=== PATIENT | female | born 1995 | race Caucasian/White ===

== ENCOUNTER → 2020-03-27 13:36 | Outpatient (BNVA) | payer MEDICARE, MEDICAID, SELFPAY | PROVIDERS: Family Provider Nurse Practitioner; Visit Provider Psychiatry & Neurology Psychiatry | DX: F60.3 Borderline personality disorder (principal); F43.12 Post-traumatic stress disorder, chronic; F33.2 Major depressive disorder, recurrent severe without psychotic features; F41.1 Generalized anxiety disorder; F12.20 Cannabis dependence, uncomplicated; F17.200 Nicotine dependence, unspecified, uncomplicated | CPT/HCPCS: 99204 ==

== ENCOUNTER → 2020-05-08 12:40 | Outpatient (BNVA) | payer MEDICARE, MEDICAID, SELFPAY | PROVIDERS: Family Provider Nurse Practitioner; Visit Provider Psychiatry & Neurology Psychiatry | DX: F60.3 Borderline personality disorder (principal); F41.1 Generalized anxiety disorder; F33.2 Major depressive disorder, recurrent severe without psychotic features; F17.200 Nicotine dependence, unspecified, uncomplicated; F43.12 Post-traumatic stress disorder, chronic; F12.20 Cannabis dependence, uncomplicated | CPT/HCPCS: 80053; 84146; 84443; 84702; 85025; 99214 ==

== ENCOUNTER 2020-05-19 20:37 | Emergency (ER) | payer MEDICARE, MEDICAID, SELFPAY ==
[2020-05-19 21:28] VITALS: BP 102/63; PULSE 102; RESP 16; TEMP 38.1; O2SAT 97; BMI 19.5
--- NOTE | 2020-05-19 22:12 | XR_ITS ---
WS: [id number] XR chest 1V portable [id number] REASON FOR EXAM: cough, fever FINDINGS: The chest is unchanged compared to 05/18/2017. The heart and mediastinum are within normal limits. Calcified granulomatous changes in both hemithoraces. The bony thorax is intact. XR/XR chest 1V portable [id number] IMPRESSION: No acute chest abnormality identified.
--- NOTE | 2020-05-19 22:14 | ED_ITS ---
HPI - COVID General: Chief Complaint: COVID symptoms Stated Complaint: FEVER,COUGH,SOB,LOST TASTE,CHILLS Time Seen by Provider: 05/19/20 22:12 Triage information: Has fever, cough or shortness of breath . No known COVID + exposure last 14 days History of Present Illness: HPI Narrative: Patient is a 24-year-old female comes to the ED with upper respiratory symptoms. Patient says symptoms started approximately 5 days ago. She complains of having fever, cough, shortness of breath, loss of taste/smell, chills, nausea and vomiting. Cough is mostly dry but it has been productive yesterday and she had dark green phlegm. She does have increased urine frequency, but denies dysuria or hematuria. Denies any known Covid contacts. COVID 19 common symptoms: positive fever(s), chills, non-productive cough, dyspnea, body aches, loss of sense of smell and/or taste, nasal congestion, nausea and vomiting; negative productive cough, fatigue, headache(s), throat pain or diarrhea COVID 19 other sytmptoms: negative chest pain COVID Results: Nasal/Oral Coronavirus 2019 PCR Pending 05/19/20 22:40 05/19/20 Review of Systems Const: Reports: fever(s), chills and body aches; Denies: fatigue Eyes: Denies: change in vision or eye discomfort ENMT: Reports: nasal discharge and nasal congestion; Denies: throat pain or odynophagia Card: Denies: chest pain, palpitations, edema, swelling of feet/ankles, dyspnea on exertion or orthopnea Resp: Reports: dyspnea and non-productive cough; Denies: productive cough GI: Reports: nausea and vomiting; Denies: abdominal pain, diarrhea, constipation or hematochezia : Reports: urinary frequency; Denies: flank pain, dysuria or hematuria Musc: Denies: neck pain, back pain or extremity swelling Skin/Breast: Denies: rash or new lesions Neuro: Denies: headache(s), numbness in extremities or weakness in extremities PFS ED PFSH: Social History Smoking and tobacco status: current every day smoker e-cigarettes E-Cigarette Details: vaporizer device and with nicotine Quit status (tobacco): has tried quititng Number of times tried to quit tobacco: 2 Second hand smoke exposure: No Current gender identity: Female Physical Exam Const: COMMON NORMALS: no acute distress, patient oriented x3, healthy appearing and alert GENERAL APPEARANCE: cooperative and comfortable HENMT: COMMON NORMALS: normocephalic HEAD & SCALP: normocephalic MOUTH: Normal oral and palatal mucosa present THROAT: posterior oropharynx normal and uvula midline Eye: COMMON NORMALS: Equal, round and reactive pupils present PUPIL: Yes Equal, round and reactive pupils present Neck/C-Spine: COMMON NORMALS: supple GENERAL: Yes normal visual inspection Resp: COMMON NORMALS: normal respiratory effort, No retractions, No use of accessory muscles and clear to auscultation bilaterally EFFORT & INSPECTION: Yes able to speak in complete sentences, No tachypneic, No respiratory distress and No labored AUSCULTATION: clear to auscultation bilaterally Cardio: COMMON NORMALS: regular rate, regular rhythm, S1 normal heart sound present, S2 normal heart sound present, No gallops present (Cardio), No clicks present (Cardio), No murmurs present (Cardio) and Peripheral pulses 2+ throughout RATE: regular rate RHYTHM: regular rhythm HEART SOUNDS: S1 normal heart sound present and S2 normal heart sound present PERIPHERAL PULSES: Peripheral pulses 2+ throughout GI: COMMON NORMALS: Normal to inspection, nondistended, normoactive bowel sounds present, Soft to palpation, non-tender and no masses PALPATION: Yes Soft to palpation : BLADDER/KIDNEY EXAM: Yes CVA tenderness on the right Back/Pelvis: GENERAL BACK: Yes CVA tenderness CVA tenderness: right Extremity: COMMON NORMALS: normal to inspection and no pedal edema Neuro: COMMON NORMALS: patient oriented x3 and moves all extremities SENSORIUM/ORIENTATION: Yes alert Skin: GENERAL SKIN EXAM: dry skin Course Vital Signs: Vital signs: Vital Signs Temperature 100.5 F H 05/19/20 21:28 Pulse Rate 89 05/19/20 23:58 Respiratory Rate 16 05/19/20 23:58 Blood Pressure 98/59 05/19/20 23:58 Pulse Oximetry 96 05/19/20 23:58 MDM - COVID MDM Narrative: Medical decision making narrative: Patient is a 24-year-old female comes to the ED with upper respiratory infection symptoms. Upper respiratory symptoms started approximately 5 days ago. She is also complaining of some urine frequency. Patient has elevated temp of 100.5 but rest of vitals are stable. Lungs are clear to auscultation bilaterally and patient has some right CVA tenderness. All other exam findings normal. White blood cell count 10.4 and hemoglobin 10.4. Sodium 132 and potassium 3.3. Rest of CBC and CMP were unremarkable. Influenza negative and strep negative. COVID-19 send out test is pending. UA showed signs of UTI. Chest x-ray shows no acute infiltra keyanna or findings. While here in the ED patient received a liter of IV fluids, Tylenol, Solu-Medrol, oral potassium and cefdinir. Patient diagnosed with upper respiratory infection and a UTI. She was sent home with a prescription of Zofran, albuterol for nebulizer and cefdinir. Patient was given self quarantine instructions. Return to ED precautions given. Follow-up with PCP in 7 to 10 days for reevaluation. Patient understood and agreed with plan. Lab Data: Attestation: I reviewed the patient's lab results. Labs: Lab Results 05/19/20 05/19/20 05/19/20 Range/Units 22:30 22:30 22:30 WBC 10.4 H (4.0-10.0) 10^3/ uL RBC 3.73 L (4.1-5.3) 10^6/u L Hgb 10.4 L (11.5-15.3) g/dL Hct 31.2 L (37.0-47.0) % MCV 83.6 (81-99) fL MCH 27.9 L (28.0-34.0) pg MCHC 33.3 (30.0-36.0) g/dL RDW 14.1 (12.1-15.1) % Plt Count 205 (130-400) 10^3/c mm MPV 10.5 H (7.4-10.4) fL Neut % (Auto) 70.3 % Lymph % (Auto) 18.8 % [place] % (Auto) 9.8 % Eos % (Auto) 0.2 % Baso % (Auto) 0.3 % Neut # (Auto) 7.29 (1.8-7.7) 10^3/u L Lymph # (Auto) 2.0 (0.8-4.8) 10^3/u L [place] # (Auto) 1.0 H (0.2-0.9) 10^3/u L Eos # (Auto) 0.0 (0.0-0.8) 10^3/u L Baso # (Auto) 0.0 (0.0-0.1) 10^3/u L Nucleated RBC % (a uto) 0 % Nucleated RBCs # 0.0 /100WBC Sodium 132 L (136-145) mmol/L Potassium 3.3 L (3.5-5.1) mmol/L Chloride 97 L (98-107) mmol/L Carbon Dioxide 22 (22-29) mmol/L Anion Gap 16.3 (5-19) BUN 10 (6-20) mg/dL Creatinine 0.8 (0.5-0.9) mg/dL GFR Calculation 88.1 L (90-130) mL/min Glucose 95 (65-115) mg/dL Calculated Osmolal ity 273 L (285-295) mOsm/k g Calcium 8.5 (8.5-10.5) mg/dL Total Bilirubin 0.8 (0.15-1.2) mg/dL AST 11 (0-32) U/L ALT 16 (0-33) U/L Alkaline Phosphata se 120 H (35-105) IU/L Total Protein 7.0 (6.6-8.7) g/dL Albumin 3.4 L (3.5-5.2) g/dL Globulin 3.6 (1.3-4.6) g/dL HCG, Qual Negative (Negative) Urine Color (Yellow) Urine Appearance (CLEAR) Urine pH (5-7) Ur Specific Gravit y (1.005-1.030) Urine Protein (Negative) Urine Glucose (UA) (Normal) Urine Ketones (Negative) Urine Blood (Negative) Urine Nitrate (Negative) Urine Bilirubin (Negative) Urine Urobilinogen (Negative) mg/dL Ur Leukocyte Clare ase (Negative) Urine RBC (0-2) /hpf Urine WBC (0-5) /hpf Ur Squamous Epith Cells (0-5) /hpf Amorphous Sediment Urine Bacteria (NONE) /hpf Influenza Type A A g (Negative) Influenza Type B A g (Negative) Group A Strep Rapi d (Negative) 05/19/20 05/19/20 05/19/20 Range/Units 22:40 22:41 22:43 WBC (4.0-10.0) 10^3/ uL RBC (4.1-5.3) 10^6/u L Hgb (11.5-15.3) g/dL Hct (37.0-47.0) % MCV (81-99) fL MCH (28.0-34.0) pg MCHC (30.0-36.0) g/dL RDW (12.1-15.1) % Plt Count (130-400) 10^3/c mm MPV (7.4-10.4) fL Neut % (Auto) % Lymph % (Auto) % [place] % (Auto) % Eos % (Auto) % Baso % (Auto) % Neut # (Auto) (1.8-7.7) 10^3/u L Lymph # (Auto) (0.8-4.8) 10^3/u L [place] # (Auto) (0.2-0.9) 10^3/u L Eos # (Auto) (0.0-0.8) 10^3/u L Baso # (Auto) (0.0-0.1) 10^3/u L Nucleated RBC % (a uto) % Nucleated RBCs # /100WBC Sodium (136-145) mmol/L Potassium (3.5-5.1) mmol/L Chloride (98-107) mmol/L Carbon Dioxide (22-29) mmol/L Anion Gap (5-19) BUN (6-20) mg/dL Creatinine (0.5-0.9) mg/dL GFR Calculation (90-130) mL/min Glucose (65-115) mg/dL Calculated Osmolal ity (285-295) mOsm/k g Calcium (8.5-10.5) mg/dL Total Bilirubin (0.15-1.2) mg/dL AST (0-32) U/L ALT (0-33) U/L Alkaline Phosphata se (35-105) IU/L Total Protein (6.6-8.7) g/dL Albumin (3.5-5.2) g/dL Globulin (1.3-4.6) g/dL HCG, Qual (Negative) Urine Color Yellow (Yellow) Urine Appearance Cloudy (CLEAR) Urine pH 6.5 (5-7) Ur Specific Gravit y 1.005 (1.005-1.030) Urine Protein Trace (Negative) Urine Glucose (UA) Norm (Normal) Urine Ketones 1+ H (Negative) Urine Blood 3+ H (Negative) Urine Nitrate Negative (Negative) Urine Bilirubin 1+ H (Negative) Urine Urobilinogen Norm (Negative) mg/dL Ur Leukocyte Clare ase 2+ H (Negative) Urine RBC 5-10 H (0-2) /hpf Urine WBC 15-25 H (0-5) /hpf Ur Squamous Epith Cells 5-10 H (0-5) /hpf Amorphous Sediment Not Reportable Urine Bacteria 3+ H (NONE) /hpf Influenza Type A A g Negative (Negative) Influenza Type B A g Negative (Negative) Group A Strep Rapi d Negative (Negative) Imaging Data: CXR: Attestation: I personally reviewed and interpreted this imaging study as follows: My impression: Chest x-ray showed no acute infiltrates or findings. COVID Results: Nasal/Oral Coronavirus 2019 PCR Pending 05/19/20 22:40 05/19/20 Discharge Plan Discharge Patient Disposition: Home Clinical Impression: Upper respiratory infection Qualifiers: URI type: unspecified viral URI Qualified Code(s): J06.9 - Acute upper respiratory infection, unspecified UTI (urinary tract infection) Qualifiers: Urinary tract infection type: acute cystitis Hematuria presence: with hematuria Qualified Code(s): N30.01 - Acute cystitis with hematuria Condition: Stable Prescriptions: New cefdinir 300 mg capsule 300 mg PO BID 10 Days Qty: 20 RF: 0 Zofran 4 mg tablet 4 mg PO Q8H Qty: 12 RF: 0 albuterol sulfate 1.25 mg/3 mL solution for nebulization 1.25 mg inhalation QID PRN (Reason: shortness of breath or wheezing) Qty: 75 RF: 0 No Action prazosin 2 mg capsule 2 mg PO .HS Qty: 30 RF: 1 lamotrigine [Lamictal] 25 mg tablet 25 mg PO DAILY Qty: 150 RF: 0 hydroxyzine HCl 50 mg tablet 50 mg PO QID PRN (Reason: itching/anxiety) Qty: 120 RF: 1 Discharge Orders: Discharge ED (Routine); Ordered 05/19/20 Ordered By: Bashir Langley Referrals: Lesvia Love FNP [Primary Care Provider] - Discharge Diet: Advance as tolerated Discharge Activity: Increase activity as tolerated and Limit activity as instructed Patient Instructions: Urinary Tract Infection in Women (ED), Upper Respiratory Infection (ED) Activity Restrictions/Additional Instructions: Follow-up with medical provider as directed in 7-10 days. COVID testing was performed and sent to lab and results will be back in 1 to 2 days. [facility] should contact you to let you know Covid results, but you can also contact [facility] to find out results as well. Self quarantine until you get Covid results. If positive self quarantine for the next 7-10 days. Take ibuprofen or Tylenol for fevers. Drink plenty of fluids and stay hydrated. Symptom management with [id number] cough and nasal decongestant meds. Take full course of antibiotics as prescribed to treat UTI. Return to the ER or your medical provider if condition worsens. Please read and understand discharge instructions. If any questions, please ask Coding Level of Care Code ED [employer] for Chg Fwd Exam Comprehensive
[2020-05-19] MEDS: ondansetron 2 mg/ML SDV 2 mL 4 MG IVP (22:28)
[2020-05-19] MEDS: sodium chloride 0.9% 1,000 ML 999 ML IV (22:28)
[2020-05-19 22:48] VITALS: O2SAT 99
[2020-05-19 22:56] LABS: Basophils % 0.3 %; Eosinophils % 0.2 %; Hematocrit 31.2 % (37.0-47.0); Hemoglobin 10.4 g/dL (11.5-15.3); Lymphocytes % 18.8 %; Mean Corpuscular HGB Conc 33.3 g/dL (30.0-36.0); Mean Corpuscular Hemoglobin 27.9 pg (28.0-34.0); Mean Corpuscular Volume 83.6 fL (81-99); Mean Platelet Volume 10.5 fL (7.4-10.4); Monocytes % 9.8 %; Neutrophils # 7.29 10^3/uL (1.8-7.7); Neutrophils % 70.3 %; Nucleated Red Blood Cells % 0 %; Platelet Count 205 10^3/cmm (130-400); Red Blood Count 3.73 10^6/uL (4.1-5.3); Red Cell Distribution Width 14.1 % (12.1-15.1); White Blood Count 10.4 10^3/uL (4.0-10.0)
[2020-05-19 22:57] LABS: Rapid Strep A Test Negative (Negative)
[2020-05-19 23:00] LABS: Alanine Aminotransferase 16 U/L (0-33); Albumin Level 3.4 g/dL (3.5-5.2); Alkaline Phosphatase 120 IU/L (35-105); Anion Gap 16.3 (5-19); Aspartate Amino Transferase 11 U/L (0-32); Blood Urea Nitrogen 10 mg/dL (6-20); Calcium 8.5 mg/dL (8.5-10.5); Carbon Dioxide 22 mmol/L (22-29); Chloride 97 mmol/L (98-107); Globulin 3.6 g/dL (1.3-4.6); Glomerular Filtration Rate 88.1 mL/min (90-130); Glucose 95 mg/dL (65-115); Osmolality Calculated 273 mOsm/kg (285-295); Potassium 3.3 mmol/L (3.5-5.1); Sodium 132 mmol/L (136-145); Total Bilirubin 0.8 mg/dL (0.15-1.2)
[2020-05-19 23:06] LABS: HCG, Serum Qual Negative (Negative)
[2020-05-19] MEDS: acetaminophen 650 mg/20.3 mL UDC PO (23:07)
[2020-05-19 23:08] LABS: Influenza A by IFA Negative (Negative); Influenza B by IFA Negative (Negative)
[2020-05-19 23:18] LABS: Urine Appearance Cloudy (CLEAR); Urine Color Yellow (Yellow); pH Urine 6.5 (5-7)
[2020-05-19 23:19] LABS: Bilirubin Urine 1+ (Negative); Blood Urine 3+ (Negative); Glucose Urine UA Norm (Normal); Ketones Urine 1+ (Negative); Leukocyte Esterase Urine 2+ (Negative); Nitrate Urine Negative (Negative); Protein Urine Trace (Negative); Specific Gravity, Urine 1.005 (1.005-1.030); Urobilinogen Urine Norm (Negative)
[2020-05-19 23:20] LABS: Add Urine Culture? Yes; Bacteria Urine 3+ /hpf; WBC Urine 15-25 /hpf (0-5)
[2020-05-19] MEDS: potassium chloride ER 20 mEq Tablet PO (23:37)
[2020-05-19 23:38] VITALS: BP 108/62; PULSE 109; RESP 18; O2SAT 98
[2020-05-19] MEDS: cefdinir 300 MG CAPSULE PO (23:48)
[2020-05-19 23:58] VITALS: BP 98/59; PULSE 89; RESP 16; O2SAT 96
[2020-05-20 16:06] LABS: Coronavirus Test Green County Not Detected
--- NOTE | 2020-05-21 15:54 | PC.NURSE ---
Pt contacted regarding negative COVID results
== END 2020-05-19 23:56 | disposition home or self-care (01) ==
PROVIDERS: Emergency Provider Physician Assistant; PCP Registered Nurse
DX: J06.9 Acute upper respiratory infection, unspecified (principal); N30.01 Acute cystitis with hematuria; F17.290 Nicotine dependence, other tobacco product, uncomplicated
CPT/HCPCS: 71045; 80053; 81001; 84703; 85025; 87077; 87081; 87086; 87186; 87635; 87804; 87880; 96361; 96374; 96375; 99284; J2405; J2930; J7030

== ENCOUNTER → 2020-07-28 14:08 | Outpatient (BNVA) | payer MEDICARE, MEDICAID, SELFPAY | PROVIDERS: PCP Registered Nurse; Visit Provider Psychiatry & Neurology Psychiatry | DX: F60.3 Borderline personality disorder (principal); F41.1 Generalized anxiety disorder; F33.2 Major depressive disorder, recurrent severe without psychotic features; F17.200 Nicotine dependence, unspecified, uncomplicated; F12.20 Cannabis dependence, uncomplicated; F43.12 Post-traumatic stress disorder, chronic | CPT/HCPCS: 99214 ==

== ENCOUNTER → 2020-10-07 12:45 | Outpatient (BNVA) | payer MEDICARE, MEDICAID, SELFPAY | PROVIDERS: PCP Registered Nurse; Visit Provider Psychiatry & Neurology Psychiatry | DX: F60.3 Borderline personality disorder (principal); F41.1 Generalized anxiety disorder; F33.2 Major depressive disorder, recurrent severe without psychotic features; F17.200 Nicotine dependence, unspecified, uncomplicated; F12.20 Cannabis dependence, uncomplicated; F43.12 Post-traumatic stress disorder, chronic | CPT/HCPCS: 99214 ==

== ENCOUNTER → 2020-10-09 11:45 | Outpatient (BNVA) | payer MEDICARE, MEDICAID, SELFPAY | PROVIDERS: PCP Family Medicine; Visit Provider Family Medicine | DX: F60.3 Borderline personality disorder (principal); K90.9 Intestinal malabsorption, unspecified; Z98.84 Bariatric surgery status; R53.83 Other fatigue; L65.9 Nonscarring hair loss, unspecified; D64.9 Anemia, unspecified | CPT/HCPCS: 80053; 82306; 82607; 82728; 82746; 83550; 84443; 85025 ==

== ENCOUNTER → 2021-03-25 10:00 | Outpatient (BNVA) | payer MEDICARE, MEDICAID, SELFPAY | PROVIDERS: PCP Family Medicine; Visit Provider Psychiatry & Neurology Psychiatry | DX: F41.1 Generalized anxiety disorder (principal); F33.2 Major depressive disorder, recurrent severe without psychotic features; F43.12 Post-traumatic stress disorder, chronic; F60.3 Borderline personality disorder; F17.290 Nicotine dependence, other tobacco product, uncomplicated; F12.20 Cannabis dependence, uncomplicated | CPT/HCPCS: 99214 ==

== ENCOUNTER → 2021-05-13 09:45 | Outpatient (BNVA) | payer MEDICARE, MEDICAID, SELFPAY | PROVIDERS: PCP Family Medicine; Visit Provider Psychiatry & Neurology Psychiatry | DX: F41.1 Generalized anxiety disorder (principal); F17.290 Nicotine dependence, other tobacco product, uncomplicated; F12.20 Cannabis dependence, uncomplicated; F43.12 Post-traumatic stress disorder, chronic; F33.2 Major depressive disorder, recurrent severe without psychotic features | CPT/HCPCS: 99214 ==

== ENCOUNTER 2021-06-01 09:06 | Outpatient (CLI) | payer MEDICARE, MEDICAID, SELFPAY ==
--- NOTE | 2021-06-01 10:46 | US_ITS ---
WS: [id number] ULTRASOUND BREAST BILATERAL TECHNIQUE: Ultrasound bilateral breast focused area of concern. CLINICAL INFORMATION: ROBERTO BREAST PAIN/LUMPS;STRONG FAM HX OF BREAST CA COMPARISON: None. FINDINGS: Ultrasound bilateral breast RIGHT BREAST: Ultrasound 11-3 Dense underlying parenchymal tissue. No cystic or solid lesions. LEFT BREAST: Ultrasound 12-3 Dense underlying parenchymal tissue. Tiny cyst with some internal debris at the 12:00 position areola measuring 4.7 x 4.4 mm. No suspicious abnormalities LEFT breast. US/US breast BI limited* [id number] IMPRESSION: No suspicious abnormalities. No lesions to target for biopsy. RECOMMEND ANNUAL SCREENING MAMMOGRAPHY AGE 40
== END 2021-06-01 09:07 | disposition home or self-care (01) ==
LOC: RAD 09:10
PROVIDERS: PCP Family Medicine; Visit Provider Nurse Practitioner Family
DX: N63.10 Unspecified lump in the right breast, unspecified quadrant (principal); N63.20 Unspecified lump in the left breast, unspecified quadrant; Z80.3 Family history of malignant neoplasm of breast
CPT/HCPCS: 76642

== ENCOUNTER → 2021-06-24 10:19 | Outpatient (BNVA) | payer MEDICARE, MEDICAID, SELFPAY | PROVIDERS: PCP Family Medicine; Visit Provider Psychiatry & Neurology Psychiatry | DX: F41.1 Generalized anxiety disorder (principal); F17.290 Nicotine dependence, other tobacco product, uncomplicated; F12.20 Cannabis dependence, uncomplicated; F33.2 Major depressive disorder, recurrent severe without psychotic features; F43.12 Post-traumatic stress disorder, chronic; F60.3 Borderline personality disorder | CPT/HCPCS: 99214 ==

== ENCOUNTER → 2021-06-25 09:18 | Outpatient (BNVA) | payer MEDICARE, MEDICAID, SELFPAY | PROVIDERS: PCP Family Medicine; Visit Provider Social Worker | DX: F60.3 Borderline personality disorder (principal); F33.2 Major depressive disorder, recurrent severe without psychotic features; F41.1 Generalized anxiety disorder; F43.12 Post-traumatic stress disorder, chronic | CPT/HCPCS: 90834 ==

== ENCOUNTER → 2021-07-23 10:21 | Outpatient (BNVA) | payer MEDICARE, MEDICAID, SELFPAY | PROVIDERS: PCP Family Medicine; Visit Provider Social Worker | DX: F60.3 Borderline personality disorder (principal); F33.2 Major depressive disorder, recurrent severe without psychotic features; F41.1 Generalized anxiety disorder; Z79.899 Other long term (current) drug therapy; D64.9 Anemia, unspecified; L65.9 Nonscarring hair loss, unspecified; M25.50 Pain in unspecified joint; M79.10 Myalgia, unspecified site | CPT/HCPCS: 90837; 80053; 82306; 82607; 82746; 83550; 85651; 86038; 86140; 86200; 86431; 86705; 86706; 86709; 86803; 87340; 90834 ==

== ENCOUNTER 2021-09-03 06:00 | Outpatient (RCR) | payer MEDICARE, MEDICAID, SELFPAY | END 2021-09-03 23:55 | disposition home or self-care (01) | LOC: TPT 06:00 | PROVIDERS: PCP Family Medicine; Referring Provider Nurse Practitioner Family; Visit Provider Nurse Practitioner Family | DX: R53.1 Weakness (principal); R27.9 Unspecified lack of coordination | CPT/HCPCS: 97163 ==

== ENCOUNTER 2021-09-04 06:00 | Outpatient (RCR) | payer MEDICARE, MEDICAID, SELFPAY | END 2021-10-04 23:59 | disposition home or self-care (01) | LOC: TPT 06:00 | PROVIDERS: PCP Nurse Practitioner Family; Referring Provider Nurse Practitioner Family; Visit Provider Nurse Practitioner Family | DX: R53.1 Weakness (principal); R27.9 Unspecified lack of coordination | CPT/HCPCS: 97110; 97112 ==

== ENCOUNTER → 2021-09-08 13:37 | Outpatient (BNVA) | payer MEDICARE, MEDICAID, SELFPAY | PROVIDERS: PCP Nurse Practitioner Family; Visit Provider Internal Medicine Cardiovascular Disease | DX: R55 Syncope and collapse (principal); R42 Dizziness and giddiness; R00.1 Bradycardia, unspecified; R00.0 Tachycardia, unspecified | CPT/HCPCS: 93229 ==

== ENCOUNTER → 2021-09-14 14:31 | Outpatient (BNVA) | payer MEDICARE, MEDICAID, SELFPAY | PROVIDERS: PCP Nurse Practitioner Family; Referring Provider Nurse Practitioner Family; Visit Provider Nurse Practitioner | DX: R51.9 Headache, unspecified (principal); R29.818 Other symptoms and signs involving the nervous system; R53.1 Weakness; F43.10 Post-traumatic stress disorder, unspecified; Z62.819 Personal history of unspecified abuse in childhood | CPT/HCPCS: 36415; 86334; 99204 ==

== ENCOUNTER 2021-09-25 22:12 | Emergency (ER) | payer MEDICARE, MEDICAID, SELFPAY ==
[2021-09-25 22:27] VITALS: BP 130/92; PULSE 101; RESP 18; TEMP 36.9; O2SAT 98
[2021-09-25 23:29] LABS: Add Urine Microscopic? NO; Charge for UA Resulting for Rev
[2021-09-25] MEDS: sodium chloride 0.9% 1,000 ML 999 ML IV (23:29)
[2021-09-25 23:32] LABS: Bilirubin Urine Neg (Negative); Blood Urine Neg (Negative); Glucose Urine UA Norm (Normal); Ketones Urine 1+ (Negative); Leukocyte Esterase Urine Negative (Negative); Nitrate Urine Negative (Negative); Protein Urine Neg (Negative); Urine Appearance Clear (CLEAR); Urine Color Yellow (Yellow); Urobilinogen Urine 1 mg/dL (Negative); pH Urine 5 (5-7)
[2021-09-25 23:41] LABS: Basophils # 0.1 10^3/uL (0.0-0.1); Eosinophils # 0.1 10^3/uL (0.0-0.8); Eosinophils % 1.1 %; Hematocrit 36.8 % (37.0-47.0); Hemoglobin 12.4 g/dL (11.5-15.3); Lymphocytes # 2.5 10^3/uL (0.8-4.8); Mean Corpuscular HGB Conc 33.7 g/dL (30.0-36.0); Mean Corpuscular Volume 83.1 fl (81-99); Mean Platelet Volume 9.6 fL (7.4-10.4); Monocytes # 0.5 10^3/uL (0.2-0.9); Monocytes % 6.9 %; Neutrophils # 4.13 10^3/uL (1.8-7.7); Neutrophils % 56.9 %; Nucleated Red Blood Cells % 0 %; Platelet Count 323 10^3/cmm (130-400); Red Blood Count 4.43 10^6/uL (4.1-5.3); Red Cell Distribution Width 13.9 % (12.1-15.1); White Blood Count 7.3 10^3/uL (4.0-10.0)
[2021-09-26 00:03] LABS: Alanine Aminotransferase 10 U/L (0-33); Albumin Level 4.4 g/dL (3.5-5.2); Alkaline Phosphatase 64 IU/L (35-105); Anion Gap 15.7 (5-19); Aspartate Amino Transferase 17 U/L (0-32); Blood Urea Nitrogen 15 mg/dL (6-20); Calcium 9.3 mg/dL (8.5-10.5); Carbon Dioxide 21 mmol/L (22-29); Chloride 106 mmol/L (98-107); Creatine Phosphokinase 71 U/L (26-192); Globulin 2.6 g/dL (1.3-4.6); Glomerular Filtration Rate 101.1 mL/min (90-130); Glucose 81 mg/dL (65-115); Osmolality Calculated 288 mOsm/kg (285-295); Potassium 3.7 mmol/L (3.5-5.1); Sodium 139 mmol/L (136-145); Total Bilirubin 1.1 mg/dL (0.15-1.2)
[2021-09-26 00:25] LABS: Amphetamines Screen Urine Negative (Negative); Barbiturates Screen Urine Negative (Negative); Benzodiazepines Screen Urine Negative (Negative); Cocaine Screen Urine Negative (Negative); Opiate Screen Urine Negative (Negative); PCP Screen Urine Negative (Negative); THC Screen Urine Positive (Negative)
[2021-09-26 01:08] VITALS: BP 121/79; PULSE 73; RESP 16; TEMP 36.8; O2SAT 100
--- NOTE | 2021-09-26 01:57 | ED_ITS ---
HPI - General Adult General: Chief complaint: General Medical Stated complaint: vein pain Time Seen by Provider: 09/25/21 23:04 History of Present Illness: Patient presents to ER stating she thinks she is dehydrated. Pt states anytime she is in the heat and gets dehydrated she has ve in pain all over her body anywhere there are veins. Pt denies any chest pain or SOB. Pt denies any risk factors or hx of blood clots. Pt denies any fever, dizziness. Associated symptoms: Deny chest pain, confusion, diaphoresis, dyspnea, headache(s), nausea, rash, palpitations, syncope or vomiting Review of Systems 2 Const: Denies: fever(s), chills, body aches, change in appetite, change in weight, fatigue or diaphoresis Eyes: Denies: change in vision, blurry vision, blind spots, photophobia, eye discomfort, eye discharge, eye redness, floaters or seeing flashes ENMT: Denies: throat pain, uvular edema, enlarged tonsils, odynophagia, hoarseness, mouth pain, swelling of lips/tongue, oral sores, bleeding gums, dental pain, dry mouth, ear or mastoid pain, ear discharge, change in hearing, tinnitus, disequilibrium, nasal discharge, nasal congestion, post nasal drip or sinus pain Card: Denies: chest pain, palpitations, irregular heart rhythm, edema, swelling of feet/ankles, lightheadedness, syncope, pre-syncope, dyspnea on exertion, orthopnea, leg pain with exertion or acrocyanosis Resp: Denies: dyspnea, productive cough, non-productive cough, wheezing, stri samson, pain on inspiration, change in phlegm color, hemoptysis or chest congestion GI: Denies: abdominal pain, nausea, vomiting, hematemesis, dysphagia, diarrhea, constipation, GI cramping, change in bowel habits or rectal pain : Denies: flank pain, difficulty voiding, dysuria, urinary frequency, urinary urgency, urinary hesitancy or hematuria Musc: Denies: neck pain, back pain, extremity pain, extremity swelling, joint pain, joint swelling, joint redness, joint warmth or deformity Skin/Breast: Denies: rash, pruritus, erythema, sores, new lesions, changes in skin color or dry skin Neuro: Denies: headache(s), numbness in extremities, weakness in extremities, sensory changes, lack of coordination, difficulty walking, frequent falls, dizziness, vertigo, confusion, behavioral changes, Slurred speech present, difficulty communicating thoughts or seizure-like activity Psych: Denies: anxiety, depression, suicidal ideation or homicidal ideation Endo: Denies: polyuria, polydipsia, tired all the time, cold intolerance, excessive sweating, flushing, hot flashes or heat intolerance Wm/Lymph: Denies: easy bruising, easy bleeding, petechiae, purpura, enlarged lymph nodes or tender lymph nodes All/Imm: Denies: urticaria, throat swelling, tongue swelling, facial swelling, acute wheezing or itchy eyes PFSH ED PFSH: Medical History Lhermitte's sign positive Social History Smoking and tobacco status: current every day smoker e-cigarettes E-Cigarette Details: vaporizer device and with nicotine Quit status (tobacco): has quit using tobacco Year quit tobacco: 2020 Second hand smoke exposure: No Alcohol intake: never Current gender identity: Female Physical Exam Const: COMMON NORMALS: no acute distress, patient oriented x3, healthy appearing, alert and well nourished GENERAL APPEARANCE: cooperative, comfortable, well kempt and well developed; not ill appearing ORIENTATION/CONSCIOUSNESS: Yes awake, Yes oriented to person, Yes oriented to place and Yes oriented to time HENMT: COMMON NORMALS: normocephalic, atraumatic, hearing grossly normal bilaterally, external ears normal, EAC's normal, TM's normal bilaterally, Normal external nose present, Normal nasal mucous membranes and turbinates present and moist oral mucous membranes HEAD & SCALP: normal to inspection, normocephalic and atraumatic FACE & SINUS: normal facial exam, sinuses nontender and face symmetric NOSE: Normal external nose present, Normal nares present, Normal nasal mucous membranes and turbinates present, No nasal discharge present and Abnormal external nose present EXTERNAL EAR: Yes external ears normal and Yes mastoids normal EXTERNAL AUDITORY CANAL: EAC's normal TYMPANIC MEMBRANE: TM's normal bilaterally MOUTH: Normal oral and palatal mucosa present, lip normal, tongue normal and Normal salivary glands and ducts present THROAT: no uvular edema Eye: COMMON NORMALS: Equal, round and reactive pupils present, EOMs intact bilaterally, conjunctivae normal and no scleral icterus GENERAL EYE: appearance normal, both eyes and all related structures EYELID: eyelids normal CONJUNCTIVA: Yes conjunctivae normal SCLERA: sclerae normal CORNEA: Yes corneas normal PUPIL: Yes Equal, round and reactive pupils present Neck/C-Spine: COMMON NORMALS: full ROM, no lymphadenopathy, supple, no meningeal signs, no JVD and Thyroid normal GENERAL: Yes normal visual inspection and Yes trachea midline THYROID: Thyroid normal CERVICAL SPINE: Yes cervical ROM normal Lymph: LYMPHATIC: no lymphadenopathy noted and no lymphedema noted Chest: COMMONS NORMALS: normal inspection of the chest and normal palpation of entire chest wall Resp: COMMON NORMALS: normal respiratory effort, No retractions, No use of accessory muscles and clear to auscultation bilaterally EFFORT & INSPECTION: Yes able to speak in complete sentences and Yes symmetric chest movement AUSCULTATION: clear to auscultation bilaterally Cardio: COMMON NORMALS: no JVD, regular rate and regular rhythm RATE: regular rate RHYTHM: regular rhythm GI: COMMON NORMALS: Normal to inspection, nondistended, normoactive bowel sounds present, Soft to palpation, non-tender, No hepatosplenomegaly present, no masses and no bruits INSPECTION: Yes normal to inspection AUSCULTATION: Yes normoactive bowel sounds PALPATION: Yes Soft to palpation and Yes No hepatosplenomegaly present PERCUSSION: normal to percussion RECTAL EXAM: deferred : COMMON NORMALS: Yes no CVA tenderness, Yes normal external appearance and Yes normal bimanual exam BLADDER/KIDNEY EXAM: Yes no CVA tenderness BIMANUAL EXAM - VAGINA & UTERUS: Yes normal bimanual exam Back/Pelvis: COMMON NORMALS: no CVA tenderness, thoracic and lumbar spine normal to inspection, no thoracic nor lumbar tenderness, thoraco-lumbar ROM normal and straight leg raise negative bilaterally THORACIC SPINE/UPPER BACK: Yes normal to inspection LUMBAR SPINE/LOWER BACK: Yes normal to inspection Extremity: COMMON NORMALS: normal to inspection, full ROM and capillary refill normal GENERAL: Yes normal exam except as noted Neuro: COMMON NORMALS: patient oriented x3, CN's II-XII intact bilaterally, moves all extremities, no focal motor deficits, no sensory deficits noted and gait normal SENSORIUM/ORIENTATION: Yes alert, Yes oriented to person, Yes oriented to place and Yes oriented to time MENINGEAL SIGNS: Yes no meningeal signs CRANIAL NERVES: Yes CN normal except as noted SPEECH: speech normal GAIT: Yes Normal gait present SENSORY EXAM: Yes extremities Psych: COMMON NORMALS: mental status grossly normal, Normal thought process present, cooperative, normal affect, speech normal, activity/motor behavior normal, denies hallucinations, denies homicidal ideation and denies suicidal ideation APPEARANCE: Yes grossly normal and Yes well kempt ATTITUDE: Yes calm ACTIVITY/MOTOR BEHAVIOR: Yes appropriate eye contact SPEECH: Yes normal speech THOUGHT PROCESS: Normal thought process present THOUGHT CONTENT: Yes Normal thought content present ATTENTION/CONCENTRATION: Yes attention grossly intact MEMORY/COGNITION: Yes memory grossly intact INSIGHT: Good insight present (Psych) JUDGEMENT: Good judgement present (Psych) Skin: COMMON NORMALS: no rashes or lesions noted, no wounds, turgor normal, no jaundice, no petechiae and no mottling GENERAL SKIN EXAM: no rashes or lesions noted and turgor normal Course Vital Signs: Vital signs: Vital Signs Temperature 98.2 F 09/26/21 01:08 Pulse Rate 73 09/26/21 01:08 Respiratory Rate 16 09/26/21 01:08 Blood Pressure 121/79 09/26/21 01:08 Pulse Oximetry 100 09/26/21 01:08 [facility] - General Adult Medical Decision Making Patient is well appearing non toxic and in no acute distress. 20 yo female patient presents to ER with pain to chest above left breast. Pt states her toddler kicked her here and anytime she moves or touches it hurts. Pt denies SOB. Pt denies any other injury or trauma. Pt was given 1 liter NS. Labs reveal no concerning signs. Pts VSS. Pt states she feels much better after fluids. I do not feel patient would benefit from any additional testing as patients sympoms have resolved. I discussed with patient return precautions, follow up and home care. Pt is medically stable and appropriate for discharge Lab Data : 09/25/21 23:22 09/25/21 23:22 Laboratory Results WBC 7.3 10^3/uL (4.0-10.0) 09/25/21 23:22 RBC 4.43 10^6/uL (4.1-5.3) 09/25/21 23:22 Hgb 12.4 g/dL (11.5-15.3) 09/25/21 23:22 Hct 36.8 % (37.0-47.0) L 09/25/21 23: MCV 83.1 fl (81-99) 09/25/21 23: MCH 28.0 pg (28.0-34.0) 09/25/21 23: MCHC 33.7 g/dL (30.0-36.0) 09/25/21 23: RDW 13.9 % (12.1-15.1) 09/25/21 23: Plt Count 323 10^3/cmm (130-400) 09/25/21 23: MPV 9.6 fL (7.4-10.4) 09/25/21 23: Neut % (Auto) 56.9 % 09/25/21 23: Lymph % (Auto) 34.0 % 09/25/21 23: [place] % (Auto) 6.9 % 09/25/21 23: Eos % (Auto) 1.1 % 09/25/21 23: Baso % (Auto) 1.0 % 09/25/21 23: Neut # (Auto) 4.13 10^3/uL (1.8-7.7) 09/25/21 23: Lymph # (Auto) 2.5 10^3/uL (0.8-4.8) 09/25/21 23: [place] # (Auto) 0.5 10^3/uL (0.2-0.9) 09/25/21 23: Eos # (Auto) 0.1 10^3/uL (0.0-0.8) 09/25/21 23: Baso # (Auto) 0.1 10^3/uL (0.0-0.1) 09/25/21: Nucleated RBC % (auto) 0 % 09/25/21: Nucleated RBCs # 0.0 /100WBC 09/25/21 23: Sodium 139 mmol/L (136-145) 09/25/21 23: Potassium 3.7 mmol/L (3.5-5.1) 09/25/21 23: Chloride 106 mmol/L (98-107) 09/25/21 23: Carbon Dioxide 21 mmol/L (22-29) L 09/25/21 23: Anion Gap 15.7 (5-19) 09/25/21 23:22 BUN 15 mg/dL (6-20) 09/25/21 23: Creatinine 0.7 mg/dL (0.5-0.9) 09/25/21 23:22 GFR Calculation 101.1 mL/min (90-130) 09/25/21 23: Glucose 81 mg/dL (65-115) 09/25/21 23: Calculated Osmolality 288 mOsm/kg (285-295) 09/25/21 23: Calcium 9.3 mg/dL (8.5-10.5) 09/25/21 23: Total Bilirubin 1.1 mg/dL (0.15-1.2) 09/25/21 23: AST 17 U/L (0-32) 09/25/21 23: ALT 10 U/L (0-33) 09/25/21 23: Alkaline Phosphatase 64 IU/L (35-105) 09/25/21 23: Creatine Kinase 71 U/L (26-192) 09/25/21 23:22 Total Protein 7.0 g/dL (6.6-8.7) 09/25/21 23: Albumin 4.4 g/dL (3.5-5.2) 09/25/21 23: Globulin 2.6 g/dL (1.3-4.6) 09/25/21 23:22 Urine Color Yellow (Yellow) 09/25/21 23:06 Urine Appearance Clear (CLEAR) 09/25/21 23:06 Urine pH 5 (5-7) 09/25/21 23:06 Ur Specific Hooper 1.030 (1.005-1.030) 09/25/21 23:06 Urine Protein Neg (Negative) 09/25/21 23:06 Urine Glucose (UA) Norm (Normal) 09/25/21 23:06 Urine Ketones 1+ (Negative) H 09/25/21 23:06 Urine Blood Neg (Negative) 09/25/21 23:06 Urine Nitrate Negative (Negative) 09/25/21 23:06 Urine Bilirubin Neg (Negative) 09/25/21 23:06 Urine Urobilinogen 1 mg/dL (Negative) H 09/25/21 23:06 Ur Leukocyte Esterase Negative (Negative) 09/25/21 23:06 Urine Opiates Screen Negative ng/mL (Negative) 09/25/21 23:06 Ur Barbiturates Screen Negative ng/mL (Negative) 09/25/21 23:06 Ur Phencyclidine Scrn Negative ng/mL (Negative) 09/25/21 23:06 Ur Amphetamines Screen Negative ng/mL (Negative) 09/25/21 23:06 U Benzodiazepines Scrn Negative ng/mL (Negative) 09/25/21 23:06 Urine Cocaine Screen Negative ng/mL (Negative) 09/25/21 23:06 U Marijuana (THC) Screen Positive ng/mL (Negative) H 09/25/21 23:06 Discharge Plan Discharge Patient Disposition: Home Clinical Impression: Heat exposure Condition: Stable Prescriptions: No Action prazosin 5 mg capsule 5 mg PO .HS Qty: 30 1RF trazodone 50 mg tablet 100 mg PO .HS PRN (Reason: insomnia) Qty: 60 1RF lamotrigine [Lamictal] 25 mg tablet 50 mg PO BID Qty: 120 2RF albuterol sulfate [ProAir HFA] 90 mcg/actuation HFA aerosol inhaler 2 puff inhalation Q6H PRN (Reason: shortness of breath or wheezing) Qty: 8.5 6RF Flovent HFA 110 mcg/actuation HFA aerosol inhaler 2 puff inhalation BID 30 Days Qty: 12 4RF albuterol sulfate 2.5 mg /3 mL (0.083 %) solution for nebulization 2.5 mg inhalation QID PRN (Reason: shortness of breath or wheezing) Qty: 180 6RF ascorbate calcium (vitamin C) 500 mg tablet 500 mg PO DAILY 90 Days Qty: 90 1RF cyanocobalamin (vitamin B-12) 2,500 mcg tablet 2,500 mcg PO DAILY 90 Days Qty: 90 1RF ergocalciferol (vitamin D2) 1,250 mcg (50,000 unit) capsule 1,250 mcg PO .one time a week Qty: 10 1RF Rx Instructions: Please take one capsule by mouth, one time a week. famotidine 20 mg tablet 20 mg PO BID Qty: 60 2RF ferrous sulfate 325 mg (65 mg iron) tablet,delayed release (DR/EC) 325 mg PO DAILY Qty: 30 5RF topiramate [Topamax] 50 mg tablet 50 mg PO DAILY 30 Days Qty: 30 6RF Discharge Orders: Discharge ED (Routine); Ordered 09/26/21 Ordered By: Maria Neal Referrals: Luz Castle NP [Primary Care Provider] - Discharge Diet: Advance as tolerated Discharge Activity: Increase activity as tolerated Patient Instructions: Opioid Safety Activity Restrictions/Additional Instructions: Please stay out of the heat Please stay hydrated Return to the ER with any worsening of symptoms Coding Level of Care Code ED Manufacturing Test Technician for Yessy Conley
== END 2021-09-26 01:09 | disposition home or self-care (01) ==
PROVIDERS: Emergency Provider Registered Nurse; PCP Nurse Practitioner Family
DX: T67.5XXA Heat exhaustion, unspecified, initial encounter (principal); X30.XXXA Exposure to excessive natural heat, initial encounter
CPT/HCPCS: 80053; 80306; 81003; 82550; 85025; 99283; J7030

== ENCOUNTER 2021-10-05 06:00 | Outpatient (RCR) | payer MEDICARE, MEDICAID, SELFPAY | END 2021-11-04 23:59 | disposition home or self-care (01) | LOC: TPT 06:00 | PROVIDERS: PCP Nurse Practitioner Family; Visit Provider Nurse Practitioner Family | DX: R53.1 Weakness (principal); R27.9 Unspecified lack of coordination | CPT/HCPCS: 97032; 97110 ==

== ENCOUNTER 2021-10-21 12:56 | Outpatient (CLI) | payer MEDICARE, MEDICAID, SELFPAY ==
--- NOTE | 2021-10-21 13:00 | MR_ITS ---
WS: [id number] MRI CERVICAL SPINE NONCONTRAST TECHNIQUE: Sagittal T1, T2 and STIR imaging. Axial T2, gradient, and fiesta imaging. CLINICAL INFORMATION: R53.1 - Weakness COMPARISON: None. FINDINGS: Straightening of the normal cervical lordosis. Cord signal is normal. No high-grade central canal jovita nosis. No significant disc extrusions or protrusions. C2-C3: Normal. C3-C4: Normal. C4-C5: Mild facet arthropathy.Spinal canal and foramen are patent. C5-C6: Mild facet arthropathy. Spinal canal and foramen are patent. C6-C7: No significant disc bulging. Mild LEFT foraminal narrowing. C7-T1: Normal. Visualized brain stem structures: Normal. Prevertebral soft tissues: Normal. MR/MR cervical spin wo con* [id number] IMPRESSION: 1. Straightening of the normal cervical lordosis. Cord signal is normal. No si gnificant central canal stenosis. 2. Mild LEFT C6-C7 bony foraminal narrowing. 3. No significant disc extrusions or protrusions. 4. Mild facet arthropathy C4-C5 and C5-C6.
--- NOTE | 2021-10-21 13:45 | MR_ITS ---
WS: [id number] MRI HEAD WITH CONTRAST TECHNIQUE: Sagittal T1, T2 axial, T2 axial FLAIR, axial susceptibility weighted imaging, axial diffus ion weighted images, and coronal T2 images were obtained. Pre and post-T1 axial and post T1 coronal i mages. ADC and FSPGR images. CLINICAL INFORMATION: R53.1 - Weakness COMPARISON: MRI July 26, 2017 FINDINGS: No evidence of restricted diffusion to suggest acute ischemia. Ventricular system and basal cisterns are patent. No suspicious intracranial signal abnormalities. Normal posterior fossa. Normal vascular flow voids at the skull base. No extra-axial fluid collections. No evidence of mass or mass effect. P aranasal sinuses and mastoid air cells well aerated. No hemosiderin on the susceptibly weighted images. Normal optic chiasm and pituitary infundibulum. No rmal cavernous sinuses and Meckel's cave. No abnormal gadolinium enhancement. Normal dural venous sin uses. Normal midline structures. Sella appears normal. MR/MR head wo/w con [id number] IMPRESSION: No significant changes since MRI 2018 1. No evidence of restricted diffusion to suggest acute ischemia. 2. No suspicious intracranial signal abnormalities. 3. No hemosiderin on susceptibly weighted images. 4. No abnormal gadolinium enhancement. 5. Normal optic chiasm and pituitary infundibulum. 6. No other remarkable findings.
--- NOTE | 2021-10-21 14:30 | MR_ITS ---
WS: [id number] MRI THORACIC SPINE WITH CONTRAST TECHNIQUE: Sagittal T1, T2 and STIR imaging. Axial T2 imaging. Post gadolinium imaging was obtained. CLINICAL INFORMATION: R29.818 - Other symptoms and signs involving the nervous ... COMPARISON: None. FINDINGS: Mild thoracic curve. Mild thoracic kyphosis. No acute compression. No high-grade central canal stenos is. Cord signal is normal. Normal CSF pulsation artifact in the dorsal spinal canal. No significant d isc extrusions or protrusions. No abnormal gadolinium enhancement. Normal caliber thoracic aorta. Nor mal paravertebral soft tissues. MR/MR thoracic spine wo/w [id number] IMPRESSION: 1. Mild thoracic curve. Mild thoracic kyphosis. No acute compression. 2. Cord signal is normal. 3. No high-grade central canal stenosis. 4. No abnormal gadolinium enhancement. 5. No other significant findings.
[2021-10-21] MEDS: gadobenate dimeglumine 20 mL vial IV (15:45)
== END 2021-10-21 12:57 | disposition home or self-care (01) ==
LOC: RAD 12:57
PROVIDERS: PCP Nurse Practitioner Family; Visit Provider Nurse Practitioner
DX: R29.818 Other symptoms and signs involving the nervous system (principal); R53.1 Weakness; M40.294 Other kyphosis, thoracic region; M47.812 Spondylosis without myelopathy or radiculopathy, cervical region
CPT/HCPCS: 70553; 72141; 72157

== ENCOUNTER → 2021-10-26 14:16 | Outpatient (BNVA) | payer MEDICARE, MEDICAID, SELFPAY | PROVIDERS: PCP Nurse Practitioner Family; Referring Provider Nurse Practitioner Family; Visit Provider Specialist | DX: M79.642 Pain in left hand (principal) | CPT/HCPCS: 73130; 99204 ==

== ENCOUNTER → 2021-10-28 13:21 | Outpatient (BNVA) | payer MEDICARE, MEDICAID, SELFPAY | PROVIDERS: PCP Nurse Practitioner Family; Visit Provider Internal Medicine | DX: R55 Syncope and collapse (principal); R07.9 Chest pain, unspecified; F17.290 Nicotine dependence, other tobacco product, uncomplicated | CPT/HCPCS: 99204 ==

== ENCOUNTER → 2021-10-30 11:42 | Outpatient (BNVA) | payer MEDICARE, MEDICAID, SELFPAY | PROVIDERS: PCP Nurse Practitioner Family; Visit Provider Nurse Practitioner Women's Health | DX: R35.0 Frequency of micturition (principal); Z11.3 Encounter for screening for infections with a predominantly sexual mode of transmission; N93.0 Postcoital and contact bleeding; R10.2 Pelvic and perineal pain; N64.52 Nipple discharge; F52.9 Unspecified sexual dysfunction not due to a substance or known physiological condition | CPT/HCPCS: 81000; 87491; 87591; 87661 ==

== ENCOUNTER 2021-11-05 06:00 | Outpatient (RCR) | payer MEDICARE, MEDICAID, SELFPAY | END 2021-11-12 23:59 | disposition home or self-care (01) | LOC: TPT 06:00 | PROVIDERS: PCP Nurse Practitioner Family; Visit Provider Nurse Practitioner Family | DX: R53.1 Weakness (principal); R27.9 Unspecified lack of coordination | CPT/HCPCS: 97110 ==

== ENCOUNTER → 2021-11-16 09:11 | Outpatient (BNVA) | payer MEDICARE, MEDICAID, SELFPAY | PROVIDERS: PCP Nurse Practitioner Family; Referring Provider Nurse Practitioner Family; Visit Provider Internal Medicine | DX: M79.10 Myalgia, unspecified site (principal); M54.2 Cervicalgia; Z98.84 Bariatric surgery status; M35.00 Sjogren syndrome, unspecified | CPT/HCPCS: 36415; 72202; 82550; 82607; 83516; 83735; 84100; 86160; 86162; 86200; 86235; 86255; 86376; 86704; 86803; 87340; 99214 ==

== ENCOUNTER 2021-12-01 11:04 | Outpatient (CLI) | payer MEDICARE, MEDICAID, SELFPAY ==
--- NOTE | 2021-12-01 11:15 | FL_ITS ---
WS: [id number] Exam: FL barium swallow [id number] Date/Time of Exam: 12/01/2021 11:20 AM Reason For Exam: Fluoroscopy time: 1min [id number] minutes # of spot films: 6 Swallowing function at the level of oropharynx was normal. The esophagus is smooth in contour. No darin dence of esophageal stricture or mass. Normal esophageal motility. No gastroesophageal reflux was not ed. No hiatal hernia. FL/FL barium swallow [id number] IMPRESSION: 1. Normal esophagram.
== END 2021-12-01 11:05 | disposition home or self-care (01) ==
PROVIDERS: PCP Nurse Practitioner Family; Visit Provider Nurse Practitioner Family
DX: R13.10 Dysphagia, unspecified (principal)
CPT/HCPCS: 74220

== ENCOUNTER → 2021-12-08 08:27 | Outpatient (BNVA) | payer MEDICARE, MEDICAID, SELFPAY | PROVIDERS: PCP Nurse Practitioner Family; Visit Provider Internal Medicine | DX: M79.10 Myalgia, unspecified site (principal); Z98.84 Bariatric surgery status; M35.00 Sjogren syndrome, unspecified; H04.129 Dry eye syndrome of unspecified lacrimal gland; M79.641 Pain in right hand; M79.642 Pain in left hand; M25.531 Pain in right wrist; M25.532 Pain in left wrist | CPT/HCPCS: 95910; 95912; 99214 ==

== ENCOUNTER → 2021-12-14 10:13 | Outpatient (BNVA) | payer MEDICARE, MEDICAID, SELFPAY | PROVIDERS: PCP Nurse Practitioner Family; Visit Provider Nurse Practitioner Women's Health | DX: R10.2 Pelvic and perineal pain (principal); N85.00 Endometrial hyperplasia, unspecified | CPT/HCPCS: 76830 ==

== ENCOUNTER → 2021-12-17 11:17 | Outpatient (BNVA) | payer MEDICARE, MEDICAID, SELFPAY | PROVIDERS: PCP Nurse Practitioner Family; Visit Provider Nurse Practitioner Women's Health | DX: N93.0 Postcoital and contact bleeding (principal); Z12.4 Encounter for screening for malignant neoplasm of cervix; R10.2 Pelvic and perineal pain; F52.9 Unspecified sexual dysfunction not due to a substance or known physiological condition | CPT/HCPCS: 87491; 87591; 87661; 88175; 88305 ==

== ENCOUNTER 2022-01-01 09:46 | Outpatient (CLI) | payer MEDICARE, MEDICAID, SELFPAY ==
--- NOTE | 2022-01-01 10:00 | USCV_ITS ---
Anita Pinto Age: 26 Gender: F : 1995 Exam Date: 01/01/2022 09:59 Ordering Phys: Edson Quiñonez M.D ([email or web address]) Technologist: Kira Hernández Exam Location: [facility] [place] Indication: SOB, SYNCOPE BP: / HR: 103 Rhythm: Sinus Technical Quality: Good MEASUREMENTS (Male / Female) Normal Values 2D ECHO LV Diastolic Diameter PLAX 4.2 cm 4.2 - 5.9 / 3.9 - 5.3 cm LV Systolic Diameter PLAX 2.5 cm IVS Diastolic Thickness 0.9 cm 0.6 - 1.0 / 0.6 - 0.9 cm IVS Systolic Thickness 1.1 cm LVPW Diastolic Thickness 0.6 cm 0.6 - 1.0 / 0.6 - 0.9 cm LVPW Systolic Thickness 1.2 cm LVOT Diameter 2.1 cm LV Ejection Fraction 2D Teich 72.7 % LV Ejection Fraction MOD 2C 62.2 % LV Ejection Fraction 2C AL 62.0 % LA Diameter 2.0 cm LA Width 3.2 cm LA Height 4.4 cm RA Width 3.1 cm RA Height 3.8 cm Aorta at Sinotubular Diameter 3.0 cm IVC Diameter 1.7 cm M-MODE MV E Point Septal Separation 0.4 cm DOPPLER AV Peak Velocity 93.0 cm/s LVOT Peak Velocity 96.0 cm/s AV Area Cont Eq vti 4.1 cm squared AV Area Cont Eq pk 3.7 cm squared MV Peak Velocity 92.0 cm/s MV Area PHT 4.6 cm squared Mitral E to A Ratio 1.6 MV E' Velocity 50.5 cm/s Mitral E to MV E' Ratio 7.2 Mitral E to LV E' Lateral Ratio 6.4 Mitral E to LV E' Septal Ratio 8.3 TR Peak Velocity 171.7 cm/s TR Peak Gradient 11.8 mmHg Right Atrial Pressure 3.0 mmHg Pulmonary Artery Systolic Pressu 14.8 mmHg PV Peak Velocity 88.0 cm/s RV Acceleration Time 0.1 s RV Ejection Time 0.3 s RV AcT/ET 0.5 FINDINGS Left Ventricle Normal left ventricular size, systolic function and wall thickness, with no regional wall motion abnormalities. Left ventricular ejection fraction is estimated at 67 %. Normal diastolic function. Right Ventricle Normal right ventricular size and systolic function. Right ventricular systolic pressure 22 mmHg. Right Atrium Normal right atrial size. Left Atrium Normal left atrial size. Mitral Valve Structurally normal mitral valve. No mitral valve stenosis. Trace mitral valve regurgitation. Aortic Valve Structurally normal trileaflet aortic valve. No aortic valve stenosis. No aortic valve regurgitation. Tricuspid Valve Structurally normal tricuspid valve. No tricuspid valve stenosis. Mild tricuspid valve regurgitation. Pulmonic Valve Structurally normal pulmonic valve. No pulmonary valve stenosis. Trace pulmonary valve regurgitation. Pericardium No pericardial effusion. Aorta Normal size aortic root and proximal ascending aorta. IVC Normal IVC dimension with >50% respiratory change of the inferior vena cava. CONCLUSIONS 1. Normal left ventricular size, systolic function and wall thickness, with no regional wall motion abnormalities. Left ventricular ejection fraction is estimated at 67 %. Normal diastolic function. 2. Normal right ventricular size and systolic function. 3. Mild tricuspid valve regurgitation. 4. Normal pulmonary artery pressure estimated at 22 mmHg. 5. No prior similar studies to compare. Nay Adams MD (Electronically Signed) Final Date: 04 January 2022 16:34 S
== END 2022-01-01 09:47 | disposition home or self-care (01) ==
LOC: RAD 09:48
PROVIDERS: PCP Nurse Practitioner Family; Visit Provider Internal Medicine
DX: R07.9 Chest pain, unspecified (principal); R06.02 Shortness of breath; I07.1 Rheumatic tricuspid insufficiency
CPT/HCPCS: 93306

== ENCOUNTER → 2022-01-18 09:15 | Outpatient (BNVA) | payer MEDICARE, MEDICAID, SELFPAY | PROVIDERS: PCP Nurse Practitioner Family; Visit Provider Specialist | DX: M25.531 Pain in right wrist (principal); M25.532 Pain in left wrist | CPT/HCPCS: 99213 ==

== ENCOUNTER → 2022-03-05 16:45 | Outpatient (BNVA) | payer MEDICARE, MEDICAID, OTHER, SELFPAY | PROVIDERS: PCP Nurse Practitioner Family; Visit Provider Obstetrics & Gynecology | DX: F52.9 Unspecified sexual dysfunction not due to a substance or known physiological condition (principal) | CPT/HCPCS: 84146 ==

== ENCOUNTER 2022-03-23 15:31 | Outpatient (CLI) | payer MEDICARE, MEDICAID, SELFPAY ==
[2022-03-23 16:47] LABS: Basophils # 0.1 10^3/uL (0.0-0.1); Basophils % 1.4 %; Eosinophils # 0.2 10^3/uL (0.0-0.8); Eosinophils % 2.4 %; Hematocrit 33.7 % (37.0-47.0); Hemoglobin 10.6 g/dL (11.5-15.3); Lymphocytes % 31.5 %; Mean Corpuscular HGB Conc 31.5 g/dL (30.0-36.0); Mean Corpuscular Hemoglobin 24.7 pg (28.0-34.0); Mean Corpuscular Volume 78.6 fl (81-99); Mean Platelet Volume 9.3 fL (7.4-10.4); Monocytes # 0.4 10^3/uL (0.2-0.9); Monocytes % 5.8 %; Neutrophils # 3.75 10^3/uL (1.8-7.7); Neutrophils % 58.7 %; Nucleated Red Blood Cells % 0 %; Platelet Count 365 10^3/cmm (130-400); Red Blood Count 4.29 10^6/uL (4.1-5.3); White Blood Count 6.4 10^3/uL (4.0-10.0)
[2022-03-23 16:50] LABS: Erythrocyte Sedimentation Rate 10 mm/hr (0-15)
[2022-03-23 19:11] LABS: Alanine Aminotransferase 11 U/L (0-33); Albumin Level 4.2 g/dL (3.5-5.2); Alkaline Phosphatase 76 U/L (35-105); Anion Gap 15.9 (5-19); Aspartate Amino Transferase 15 U/L (0-32); Blood Urea Nitrogen 11 mg/dL (6-20); Carbon Dioxide 24 mmol/L (22-29); Chloride 105 mmol/L (98-107); Glomerular Filtration Rate 149.1 mL/min (90-130); Glucose 83 mg/dL (65-115); Osmolality Calculated 291 mOsm/kg (285-295); Potassium 3.9 mmol/L (3.5-5.1); Sodium 141 mmol/L (136-145); Total Protein 7.2 g/dL (6.6-8.7)
== END 2022-03-23 15:32 | disposition home or self-care (01) ==
LOC: LAB 15:35
PROVIDERS: PCP Nurse Practitioner Family; Visit Provider Internal Medicine
DX: N64.3 Galactorrhea not associated with childbirth (principal); N93.0 Postcoital and contact bleeding; N93.9 Abnormal uterine and vaginal bleeding, unspecified
CPT/HCPCS: 36415; 80053; 85025; 85651; 86140

== ENCOUNTER → 2022-04-01 13:39 | Outpatient (BNVA) | payer MEDICARE, MEDICAID, SELFPAY | PROVIDERS: PCP Nurse Practitioner Family; Visit Provider Internal Medicine | DX: M54.2 Cervicalgia (principal); M35.00 Sjogren syndrome, unspecified; M79.10 Myalgia, unspecified site; Z98.84 Bariatric surgery status | CPT/HCPCS: 72100; 99214 ==

== ENCOUNTER 2022-04-30 11:39 | Outpatient (CLI) | payer MEDICARE, MEDICAID, SELFPAY ==
--- NOTE | 2022-04-30 11:45 | US_ITS ---
WS: [id number] ULTRASOUND BILATERAL BREAST, limited HISTORY: N64.3 - Galactorrhea not associated with childbirth COMPARISON: 05/24/2021 TECHNIQUE: 2-D and Doppler. Ultrasound is performed of each breast particularly around the nipples. There are no dilated ducts. N o soft tissue masses. No intraductal papilloma or mass identified. US/US breast BI limited* [id number] IMPRESSION: BI-RADS: 1-Negative FOLLOW-UP: See Report No ultrasound abnormality identified to explain nipple discharge.
== END 2022-04-30 11:40 | disposition home or self-care (01) ==
LOC: RAD 11:41
PROVIDERS: PCP Nurse Practitioner Family; Visit Provider Obstetrics & Gynecology
DX: N64.3 Galactorrhea not associated with childbirth (principal)
CPT/HCPCS: 76642

== ENCOUNTER → 2022-05-28 11:36 | Outpatient (BNVA) | payer MEDICARE, MEDICAID, SELFPAY | PROVIDERS: PCP Nurse Practitioner Family; Visit Provider Internal Medicine | DX: R55 Syncope and collapse (principal); R07.9 Chest pain, unspecified; F17.200 Nicotine dependence, unspecified, uncomplicated | CPT/HCPCS: 99214 ==

== ENCOUNTER 2022-06-03 12:14 | Outpatient (CLI) | payer MEDICARE, MEDICAID, SELFPAY ==
--- NOTE | 2022-06-03 | ECG_ITS ---
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 Interpretive Statements NAME OF STUDY: TREADMILL STRESS TEST INDICATION: [Chest Pain, ] EXERCISE DATA: The patient was exercised by Darrel protocol. Baseline heart rate was 86 beats per minute. Baseline blood pressure was 108/54 millimeters of mercury. Target heart rate was 164 beats per minute. Maximum heart rate achieved was 166, which was 101% of the target heart rate. Maximum blood pressure ook219/51 millimeters of mercury. Total exercise time was 9 minutes and 20 seconds. Maximum METs achieved was 13.5 .The reason for ending the test was completion of the protocol. The patient complained of shortness of breath during the stress test, which then resolved at the end of the test. ELECTROCARDIOGRAM: BASELINE: Showed sinus rhythm, normal axis, no significant ST-T changes at the baseline noted. [] EXERCISE: At the peak exercise level, [] No significant ST-T changes suggestive of ischemia noted. [] RECOVERY: During the recovery period, heart rate dropped appropriately. No significant ST-T changes in the recovery suggestive of ischemia noted. [] CONCLUSION: 1. Exercise capacity excellent 2. Heart rate response was appropriate 3. Blood pressure response was appropriate 4. Symptoms not suggestive of ischemia. 5. Stress test negative for ischemia Electronically Signed On 06-13-2022 15:43:35 CDT by Edson Quiñonez M.D. [email or web address]
[2022-06-03 12:29] VITALS: BP 121/56; PULSE 93; BMI 20.6
== END 2022-06-03 12:15 | disposition home or self-care (01) ==
LOC: CDL 12:15
PROVIDERS: PCP Nurse Practitioner Family; Visit Provider Internal Medicine
DX: R07.9 Chest pain, unspecified (principal)
CPT/HCPCS: 93017

== ENCOUNTER → 2022-09-09 10:59 | Outpatient (BNVA) | payer MEDICARE, MEDICAID, SELFPAY | PROVIDERS: PCP Nurse Practitioner Family; Visit Provider Nurse Practitioner Family | DX: R55 Syncope and collapse (principal) | CPT/HCPCS: 99213 ==

== ENCOUNTER 2023-02-24 10:53 | Emergency (ER) | payer MEDICARE, MEDICAID, SELFPAY ==
[2023-02-24 10:55] VITALS: BP 122/77; PULSE 88; RESP 16; TEMP 36.6; O2SAT 100; BMI 20.6
--- NOTE | 2023-02-24 11:21 | CT_ITS ---
WS: [id number] CT HEAD TECHNIQUE: Noncontrast CT of the head obtained from the skullbase to the vertex. CLINICAL INFORMATION: head injury COMPARISON: MRI 2021 DLP: 922.[address] scans at [facility] use at least one of these dose optimization techniques: automated e xposure control; mA and/or kV adjustment per patient size (includes targeted exams where dose is matc hed to clinical indication); or iterative reconstruction. FINDINGS: No evidence of intracranial hemorrhage or mass effect. Ventricular system and basal cisterns are torres nt. No extra-axial fluid collections. No evidence of mass or mass effect. Normal musa-white different iation. Paranasal sinuses and mastoid air cells are well aerated. .Normal visualized soft tissues. IMPRESSION: 1. No evidence of intracranial hemorrhage or mass effect. 2. No acute intracranial findings.
--- NOTE | 2023-02-24 11:22 | ED_ITS ---
HPI - Headache 2 General: Chief Complaint: Headache Stated Complaint: N/V, Blurry vision,head pain, hit head 2 days ago Time Seen by Provider: 02/24/23 10:57 Source: patient Mode of arrival: ambulatory Limitations: no limitations History of Present Illness: 27-year-old female states that she did h it her head 2 days ago she had fell hit on concrete states since then she been having headache she has been having nausea vomiting as well with some dizziness. Denies any loss conscious denies any neck pain denies any worsening improving factors. Associated symptoms: Reports vomiting; Deny chest pain, fever(s), nausea or rash Review of Systems 2 Const: Denies: fever(s), chills, body aches or change in appetite Eyes: Denies: blurry vision or eye discomfort ENMT: Denies: throat pain or dental pain Card: Denies: chest pain Resp: Denies: dyspnea GI: Reports: vomiting; Denies: abdominal pain, nausea or diarrhea Musc: Denies: neck pain or back pain Skin/Breast: Denies: rash Neuro: Reports: headache(s) Psych: Denies: depression Wm/Lymph: Denies: easy bruising All/Imm: Denies: urticaria PFSH ED 2 PFSH: Medical History Migraine without aura No pertinent past medical history neghx: htn,dm,thyroid,dvt/pe PCP: Luz Carlin's sign positive Seizure disorder Malabsorption syndrome Paranoid schizophrenia Nicotine dependence, unspecified, uncomplicated Cannabis use disorder, moderate, dependence has marijuana card for epilepsy Generalized anxiety disorder Major depressive disorder, recurrent severe without psychotic features Post-traumatic stress disorder, chronic Borderline personality disorder Surgical History H/O hemorrhoidectomy (~2019) Hx of section 1)--2014 2)--2016 Hx laparoscopic cholecystectomy 2017 Hx of tubal ligation (~2016) at the same time of her C/S H/O gastric bypass (~09/2017) Della; Abelardo Arteaga Family History Mother Hypertension Diabetes Hypercholesteremia Stroke Father Diabetes Heart disease Hypercholesteremia Hypertension Stroke Family/Other Breast cancer Maternal Aunt--dx age 50 Grandfather Diabetes Maternal and Paternal Grandmother Diabetes Maternal and Paternal Cancer MGM- Leukemia Denies family history of Colon cancer Ovarian cancer Uterine cancer Thyroid disease Social History Smoking and tobacco/nicotine status: current every day tobacco/nicotine user Substance/Drug Use: current Substance/Drug use frequency: daily Other substance/drug use details: Uses for Epilepsy. Female Reproductive History: Date of last menstrual period: 02/24/23 Physical Exam 2 Const: COMMON NORMALS: no acute distress, patient oriented x3 and healthy appearing HENMT: COMMON NORMALS: normocephalic and atraumatic HEAD & SCALP: n ormocephalic and atraumatic Neck/C-Spine: COMMON NORMALS: full ROM and supple Chest: COMMONS NORMALS: normal inspection of the chest Resp: COMMON NORMALS: normal respiratory effort Cardio: COMMON NORMALS: regular rate, regular rhythm and No murmurs present (Cardio) RATE: regular rate RHYTHM: regular rhythm Extremity: COMMON NORMALS: normal to inspection and full ROM Neuro: COMMON NORMALS: patient oriented x3, moves all extremities and no focal motor deficits Psych: COMMON NORMALS: mental status grossly normal, Normal thought process present and cooperative THOUGHT PROCESS: Normal thought process present Skin: COMMON NORMALS: no rashes or lesions noted and no wounds GENERAL SKIN EXAM: no rashes or lesions noted Course 2 Vital Signs: Vital signs: Vital Signs Temperature 97.9 F 02/24/23 10:55 Pulse Rate 63 02/24/23 12:35 Respiratory Rate 15 02/24/23 12:35 Blood Pressure 114/72 02/24/23 12:35 Pulse Oximetry 99 02/24/23 12:35 Oxygen Delivery Me thod Room Air 02/24/23 12:35 MDM - Headache Medical Decision Making Patient presents with a headache after closed head injury CT head here is normal she is stable for discharge she is to follow-up with PCP and return if worsening she understands agrees to plan. Medical Records I reviewed the patient's medical records. Lab Data I reviewed the patient's lab results. 02/24/23 11:32 02/24/23 11:32 Laboratory Results WBC 10.81 10^3/uL (3.29-11.43) 02/24/23 11:32 RBC 4.09 10^6/uL (3.85-5.65) 02/24/23 11:32 Hgb 8.60 g/dL (11.27-16.99) L 02/24/23 11:32 Hct 27.6 % (36-47) L 02/24/23 11:32 MCV 67.5 fl (85-98) L 02/24/23 11:32 MCH 21.0 pg (27-33) L 02/24/23 11:32 MCHC 31.2 g/dL (30-55) 02/24/23 11:32 RDW 16.7 % (12.1-15.1) H 02/24/23 11:32 Plt Count 426 10^3/cmm (157-399) H 02/24/23 11:32 MPV 9.6 fL (7.4-10.4) 02/24/23 11:32 Neut % (Auto) 84.0 % 02/24/23 11:32 Lymph % (Auto) 9.7 % 02/24/23 11:32 [place] % (Auto) 5.2 % 02/24/23 11:32 Eos % (Auto) 0.1 % 02/24/23 11:32 Baso % (Auto) 0.7 % 02/24/23 11:32 Neut # (Auto) 9.08 10^3/uL (1.8-7.7) H 02/24/23 11:32 Lymph # (Auto) 1.1 10^3/uL (0.8-4.8) 02/24/23 11:32 [place] # (Auto) 0.6 10^3/uL (0.2-0.9) 02/24/23 11:32 Eos # (Auto) 0.0 10^3/uL (0.0-0.8) 02/24/23 11:32 Baso # (Auto) 0.1 10^3/uL (0.0-0.1) 02/24/23 11:32 Nucleated RBC % (auto) 0 % 02/24/23 11:32 Nucleated RBCs # 0.0 /100WBC 02/24/23 11:32 Sodium 139 mmol/L (136-145) 02/24/23 11:32 Potassium 3.5 mmol/L (3.5-5.1) 02/24/23 11:32 Chloride 104 mmol/L (98-107) 02/24/23 11:32 Carbon Dioxide 25 mmol/L (22-29) 02/24/23 11:32 Anion Gap 13.5 (5-19) 02/24/23 11:32 BUN 6 mg/dL (6-20) 02/24/23 11:32 Creatinine 0.6 mg/dL (0.5-0.9) 02/24/23 11:32 GFR Calculation 119.9 mL/min (90-130) 02/24/23 11:32 Glucose 106 mg/dL (65-115) 02/24/23 11:32 Calculated Osmolality 286 mOsm/kg (285-295) 02/24/23 11:32 Calcium 9.2 mg/dL (8.5-10.5) 02/24/23 11:32 Total Bilirubin 0.7 mg/dL (0.15-1.2) 02/24/23 11:32 AST 15 U/L (0-32) 02/24/23 11:32 ALT 10 U/L (0-33) 02/24/23 11:32 Alkaline Phosphatase 85 U/L (35-105) 02/24/23 11:32 Total Protein 6.9 g/dL (6.6-8.7) 02/24/23 11:32 Albumin 4.2 g/dL (3.5-5.2) 02/24/23 11:32 Globulin 2.7 g/dL (1.3-4.6) 02/24/23 11:32 All radiology interpretation(s) finalized by discharge Discharge Plan Discharge Patient Disposition: Home Clinical Impression: Headache Qualifiers: Headache type: unspecified Headache chronicity pattern: acute headache I ntractability: not intractable Qualified Code(s): R51.9 - Headache, unspecified Head injury Qualifiers: Encounter type: initial encounter Qualified Code(s): S09.90XA - Unspecified injury of head, initial encounter Condition: Stable Prescriptions: No Action albuterol sulfate [ProAir HFA] 90 mcg/actuation HFA aerosol inhaler 2 puff inhalation Q6H PRN (Reason: shortness of breath or wheezing) Qty: 8.5 6RF Flovent HFA 110 mcg/actuation HFA aerosol inhaler 2 puff inhalation BID 30 Days Qty: 12 4RF cyanocobalamin (vitamin B-12) 2,500 mcg tablet 2,500 mcg PO DAILY 90 Days Qty: 90 1RF ferrous sulfate 325 mg (65 mg iron) tablet,delayed release (DR/EC) 325 mg PO DAILY Qty: 30 5RF topiramate 100 mg tablet 100 mg PO DAILY 30 Days Qty: 30 0RF gabapentin 100 mg capsule 100 mg PO DAILY Qty: 30 3RF chlorpromazine 50 mg tablet 50 mg PO BID Qty: 60 2RF albuterol sulfate 2.5 mg /3 mL (0.083 %) solution for nebulization 2.5 mg inhalation QID PRN (Reason: shortness of breath or wheezing) Qty: 180 6RF diclofenac sodium [Voltaren Arthritis Pain] 1 % gel 4 g topical QID Qty: 100 1RF Rx Instructions: apply to single knee, ankle, foot; for foot includes sole/toes/top of foot meloxicam 15 mg tablet 15 mg PO DAILY Qty: 30 3RF ergocalciferol (vitamin D2) 1,250 mcg (50,000 unit) capsule 1,250 mcg PO Q7D amitriptyline 25 mg tablet 25 mg PO BEDTIME Discharge Orders: Discharge ED (Routine); Ordered 02/24/23 Ordered By: Aren Novak Referrals: Luz Castle NP [Primary Care Provider] - 1-3 days Discharge Diet: Advance as tolerated Discharge Activity: Resume usual activity Patient Instructions: Head Injury (ED) Coding Level of Care Code ED Advertising Production Manager for Yessy Conley
[2023-02-24 11:33] VITALS: BP 119/86; PULSE 89; RESP 21; O2SAT 93
[2023-02-24 11:44] LABS: Basophils # 0.1 10^3/uL (0.0-0.1); Basophils % 0.7 %; Eosinophils % 0.1 %; Hematocrit 27.6 % (36-47); Lymphocytes # 1.1 10^3/uL (0.8-4.8); Lymphocytes % 9.7 %; Mean Corpuscular HGB Conc 31.2 g/dL (30-55); Mean Corpuscular Volume 67.5 fl (85-98); Mean Platelet Volume 9.6 fL (7.4-10.4); Monocytes # 0.6 10^3/uL (0.2-0.9); Monocytes % 5.2 %; Neutrophils # 9.08 10^3/uL (1.8-7.7); Nucleated Red Blood Cells % 0 %; Platelet Count 426 10^3/cmm (157-399); Red Blood Count 4.09 10^6/uL (3.85-5.65); Red Cell Distribution Width 16.7 % (12.1-15.1); White Blood Count 10.81 10^3/uL (3.29-11.43)
[2023-02-24] MEDS: metoclopramide 5 mg/mL SDV 2 mL 10 MG IVP (11:44)
[2023-02-24] MEDS: diphenhydrAMINE 50 mg/mL SDV 1mL IVP (11:45)
[2023-02-24] MEDS: sodium chloride 0.9% 1,000 ML 999 ML IV (11:47)
[2023-02-24 12:03] LABS: Alanine Aminotransferase 10 U/L (0-33); Albumin Level 4.2 g/dL (3.5-5.2); Alkaline Phosphatase 85 U/L (35-105); Anion Gap 13.5 (5-19); Aspartate Amino Transferase 15 U/L (0-32); Blood Urea Nitrogen 6 mg/dL (6-20); Calcium 9.2 mg/dL (8.5-10.5); Carbon Dioxide 25 mmol/L (22-29); Chloride 104 mmol/L (98-107); Globulin 2.7 g/dL (1.3-4.6); Glomerular Filtration Rate 119.9 mL/min (90-130); Glucose 106 mg/dL (65-115); Osmolality Calculated 286 mOsm/kg (285-295); Potassium 3.5 mmol/L (3.5-5.1); Sodium 139 mmol/L (136-145); Total Bilirubin 0.7 mg/dL (0.15-1.2); Total Protein 6.9 g/dL (6.6-8.7)
[2023-02-24 12:35] VITALS: BP 114/72; PULSE 63; RESP 15; O2SAT 99
[2023-02-24 12:51] VITALS: BP 109/67; PULSE 77; O2SAT 98
== END 2023-02-24 12:53 | disposition home or self-care (01) ==
PROVIDERS: Emergency Provider Emergency Medicine; PCP Nurse Practitioner Family
DX: R51.9 Headache, unspecified (principal); S09.8XXA Other specified injuries of head, initial encounter; Z72.0 Tobacco use; W19.XXXA Unspecified fall, initial encounter
CPT/HCPCS: 70450; 80053; 85025; 96361; 96374; 96375; 99285; J1200; J2765; J7030

== ENCOUNTER 2023-04-20 08:58 | Outpatient (CLI) | payer MEDICARE, MEDICAID, SELFPAY ==
--- NOTE | 2023-04-20 09:15 | US_ITS ---
WS: [id number] Complete ABDOMINAL ULTRASOUND HISTORY: abd pain, bloating COMPARISON: None available. Liver: 11.8 cm in length. Normal size liver and echogenicity. No bile duct dilatation or mass. Portal Vein: Normal hepatopetal flow with monophasic waveform. Gallbladder: Prior cholecystectomy. CBD: 0.5 cm Pancreas: Normal size and echogenicity. Right kidney: 8.9 cm x 5.2 x 4.2 cm. Cortex:1.0 cm. Normal size and echogenicity. No hydronephrosis or mass. Left kidney: 9.4 cm x 4.3 cm x 4.0 cm. Cortex: 1.0 cm. Normal size and echogenicity. No hydronephrosis or mass. Spleen: 9.1 cm in length. Aorta and IVC: Unremarkable abdominal aorta and IVC. Impression: 1. Prior cholecystectomy. 2. Otherwise abdominal ultrasound is negative.
== END 2023-04-20 08:59 | disposition home or self-care (01) ==
LOC: RAD 08:59
PROVIDERS: PCP Nurse Practitioner Family; Visit Provider Nurse Practitioner Family
DX: K59.00 Constipation, unspecified (principal); Z90.49 Acquired absence of other specified parts of digestive tract
CPT/HCPCS: 76700

== ENCOUNTER → 2023-05-12 13:08 | Outpatient (BNVA) | payer MEDICARE, MEDICAID, SELFPAY | PROVIDERS: PCP Nurse Practitioner Family; Visit Provider Nurse Practitioner Family | DX: F60.3 Borderline personality disorder (principal); F43.12 Post-traumatic stress disorder, chronic; F41.1 Generalized anxiety disorder; F33.2 Major depressive disorder, recurrent severe without psychotic features; R79.89 Other specified abnormal findings of blood chemistry; T78.40XA Allergy, unspecified, initial encounter; D64.9 Anemia, unspecified; Z98.84 Bariatric surgery status; K90.9 Intestinal malabsorption, unspecified; D50.9 Iron deficiency anemia, unspecified; F12.20 Cannabis dependence, uncomplicated; G40.909 Epilepsy, unspecified, not intractable, without status epilepticus; F17.290 Nicotine dependence, other tobacco product, uncomplicated | CPT/HCPCS: 80053; 80061; 80307; 81000; 82306; 82607; 82746; 82785; 83550; 84443; 85025; 86003 ==

== ENCOUNTER → 2023-06-17 09:40 | Outpatient (BNVA) | payer MEDICARE, MEDICAID, SELFPAY | PROVIDERS: PCP Nurse Practitioner Family; Visit Provider Nurse Practitioner Family | DX: R79.89 Other specified abnormal findings of blood chemistry (principal); M35.3 Polymyalgia rheumatica | CPT/HCPCS: 83036; 85651; 86038; 86140 ==

== ENCOUNTER → 2023-07-04 09:58 | Outpatient (BNVA) | payer MEDICARE, MEDICAID, SELFPAY | PROVIDERS: PCP Nurse Practitioner Family; Referring Provider Nurse Practitioner Family; Visit Provider Surgery | DX: R13.10 Dysphagia, unspecified; K92.2 Gastrointestinal hemorrhage, unspecified; D50.9 Iron deficiency anemia, unspecified; K59.04 Chronic idiopathic constipation; K21.9 Gastro-esophageal reflux disease without esophagitis | CPT/HCPCS: 99204 ==

== ENCOUNTER → 2023-08-29 09:33 | Outpatient (BNVA) | payer MEDICARE, MEDICAID, SELFPAY | PROVIDERS: PCP Nurse Practitioner Family; Visit Provider Nurse Practitioner Family | DX: N30.01 Acute cystitis with hematuria (principal); K90.9 Intestinal malabsorption, unspecified; G40.909 Epilepsy, unspecified, not intractable, without status epilepticus; N64.4 Mastodynia; F60.3 Borderline personality disorder; F43.12 Post-traumatic stress disorder, chronic; F41.1 Generalized anxiety disorder; R35.0 Frequency of micturition; R30.0 Dysuria | CPT/HCPCS: 80053; 80307; 85025 ==

== ENCOUNTER 2023-09-14 09:07 | Day surgery (SDC) | payer MEDICARE, MEDICAID, SELFPAY ==
[2023-09-14 09:25] LABS: OR HCG Qualitative Urine Negative (Negative)
[2023-09-14 09:27] VITALS: BP 104/69; PULSE 89; RESP 20; TEMP 36.5; O2SAT 98; BMI 21.6
[2023-09-14] MEDS: sodium chloride 0.9% 1,000 ML 30 ML IV (09:35)
--- NOTE | 2023-09-14 09:44 | P.ANESASSM_ITS ---
Pre-Anesthetic Assessment Height/Weight: Height 1.5 m Weight 48.534 kg Temp Pulse Resp BP Pulse Ox O2 Del Method 97.7 F 89 20 H 104/69 98 Room Air 09/14/23 09:27 09/14/23 09:27 09/14/23 09:27 09/14/23 09:27 09/14/23 09:27 09/14/23 09:27 Operation Date: 09/14/23 10:00 Proposed Procedures p EGD Dilation W/ Balloon 20687, 02636, G0105, R13.10, K92.2, D50.9, K59.04, K21.9(Not Applicable) - Fox Nuñez DO s Colonoscopy(Not Applicable) - Fox Nuñez DO Familial anesthetic complications: Ms. Pinto reports that reports that during her last colonoscopy (2015) she went into cardiac arrest. She reports that she regained circulation without any intervention and she was discharged home shortly after her procedure concluded. She denied any chest discomfort or symptoms post procedure making CPR unlikely. Last intake: Intake Last Liquid Date 09/13/23 Last Liquid Time 23:00 Last Solid Date 09/12/23 Last Solid Time 21:00 Social Tobacco (vape) daily cannabis use. last used yesterday. Exam alert, oriented x 3, clear to auscultation bilaterally and regular rate & rhythm Airway Submandibular: within normal limits Cervical ROM: within normal limits Mallampati: Class I Dentition: full Pulmonary Asthma and Sleep Apnea (cpap- doesnt use sleep study suggested doesn't believe she has it.) CV/HEM Palpitations (anxiety related.) None reported Hepatic None reported GI Gastroesophageal Reflux Disease Dysphagia Metabolic Diabetes Mellitus ( borderline per patient) A1C of 5 06/17/23 [facility] [place] Fibromyalgia Neuropsych Anxiety, Depression and Seizure ( stress induced/ extreme temperature changes no formal diagnosis) borderline personality disorder, Cannabis use disorder, Generalized Anxiety, Major Depressive disorder, PTSD Somatic Pain disorder, Schizophrenia Anesthetic Plan ASA status: 3 Anesthesia: MAC Medications/Allergies Home Medications Medication Instructions Recorded Confirmed Last Taken Type albuterol sulfate 90 mcg/actuation 2 puff inhalation Q6H PRN 06/25/21 09/14/23 1 Week Ago Rx aerosol inhaler (ProAir HFA) shortness of breath or wheezing ~09/05/23 #8.5 grams albuterol sulfate 2.5 mg/3 mL 2.5 mg (3 mL) inhalation QID PRN 03/10/22 09/14/23 2 Months Ago Rx (0.083 %) solution for nebulization shortness of breath or wheezing ~06/08/23 #180 mL polyethylene glycol 3350 17 17 g PO BID 30 days #1,020 grams 04/06/23 09/14/23 09/11/23 Rx gram/dose oral powder (Miralax) ferrous sulfate 325 mg (65 mg 325 mg PO TID 90 days #270 tabs 05/19/23 09/14/23 09/10/23 Rx iron) tablet,delayed release pantoprazole 40 mg tablet,delayed 40 mg PO BID 6 weeks #84 tabs 07/04/23 09/14/23 09/11/23 Rx release (Protonix) olanzapine 2.5 mg tablet (Zyprexa) 2.5 mg PO BID 30 days #60 tabs 07/26/23 09/14/23 09/11/23 Rx prazosin 1 mg capsule 1 mg PO .qhs 30 days #30 caps 07/26/23 09/14/23 09/11/23 Rx cyanocobalamin (vitamin B-12) 2,500 mcg PO DIRECTED 08/08/23 09/14/23 09/05/23 History 2,500 mcg tablet ergocalciferol (vitamin D2) 50 mcg 50 mcg PO DIRECTED 08/08/23 09/14/23 09/05/23 History (2,000 unit) tablet alprazolam 0.25 mg tablet 0.25 mg PO BID PRN anxiety 30 days 08/29/23 09/14/23 09/12/23 Rx #60 tabs Allergies Allergy/AdvReac Type Severity Reaction Status Date / Time codeine Allergy Severe Closes Verified 08/08/23 09:30 throat Current Medications Generic Name Dose Route Start Last Admin Trade Name Freq PRN Reason Stop Dose Admin Sodium Chloride 1,000 mls @ 30 mls/hr 09/14/23 09:15 09/14/23 09:35 Sodium Chloride 0.9% IV 09/15/23 09:14 30 mls/hr .Q24H GLADYS Administration PFSH Anesthesia Medical History Migraine without aura No pertinent past medical history neghx: htn,dm,thyroid,dvt/pe PCP: Luz Castle Lhramone's sign positive Seizure disorder Malabsorption syndrome Paranoid schizophrenia Nicotine dependence, unspecified, uncomplicated Cannabis use disorder, moderate, dependence has marijuana card for epilepsy Generalized anxiety disorder Major depressive disorder, recurrent severe without psychotic features Post-traumatic stress disorder, chronic Borderline personality disorder Surgical History H/O hemorrhoidectomy (~2019) Hx of section 1)--2014 2)--2016 Hx laparoscopic cholecystectomy 2017 Hx of tubal ligation (~2016) at the same time of her C/S H/O gastric bypass (~09/2017) Della; Abelardo Arteaga Family History Mother Hypertension Diabetes Hypercholesteremia Stroke Father Diabetes Heart disease Hypercholesteremia Hypertension Stroke Family/Other Breast cancer Maternal Aunt--dx age 50 Grandfather Diabetes Maternal and Paternal Grandmother Diabetes Maternal and Paternal Cancer MGM- Leukemia Denies family history of Colon cancer Ovarian cancer Uterine cancer Thyroid disease Social History Smoking and tobacco/nicotine status: current every day tobacco/nicotine user e- cigarettes E-Cigarette Details: vaporizer device and with nicotine Second hand smoke exposure: No Alcohol intake: never Substance/Drug Use: current Substance/Drug use frequency: daily Other substance/drug use details: medical marijuana card Data Anesthesia Cardiac Studies: Echocardiogram 01/01/22 Cardiac Event Monitor 09/08/21
--- NOTE | 2023-09-14 10:19 | PM.HP ---
Providers/Chief Complaint Primary Care Provider: Luz Castle NP Chief Complaint: K59.04 History of Present Illness Anita Pinto is a 28 year old female Review of Systems General: Reports: 10 or more systems reviewed and unremarkable except in HPI and below Medications/Allergies Home Medications Medication Instructions Recorded Confirmed Last Taken Type albuterol sulfate 90 mcg/actuation 2 puff inhalation Q6H PRN 06/25/21 09/14/23 1 Week Ago Rx aerosol inhaler (ProAir HFA) shortness of breath or wheezing ~09/05/23 #8.5 grams albuterol sulfate 2.5 mg/3 mL 2.5 mg (3 mL) inhalation QID PRN 03/10/22 09/14/23 2 Months Ago Rx (0.083 %) solution for nebulization shortness of breath or wheezing ~06/08/23 #180 mL polyethylene glycol 3350 17 17 g PO BID 30 days #1,020 grams 04/06/23 09/14/23 09/11/23 Rx gram/dose oral powder (Miralax) ferrous sulfate 325 mg (65 mg 325 mg PO TID 90 days #270 tabs 05/19/23 09/14/23 09/10/23 Rx iron) tablet,delayed release pantoprazole 40 mg tablet,delayed 40 mg PO BID 6 weeks #84 tabs 07/04/23 09/14/23 09/11/23 Rx release (Protonix) olanzapine 2.5 mg tablet (Zyprexa) 2.5 mg PO BID 30 days #60 tabs 07/26/23 09/14/23 09/11/23 Rx prazosin 1 mg capsule 1 mg PO .qhs 30 days #30 caps 07/26/23 09/14/23 09/11/23 Rx cyanocobalamin (vitamin B-12) 2,500 mcg PO DIRECTED 08/08/23 09/14/23 09/05/23 History 2,500 mcg tablet ergocalciferol (vitamin D2) 50 mcg 50 mcg PO DIRECTED 08/08/23 09/14/23 09/05/23 History (2,000 unit) tablet alprazolam 0.25 mg tablet 0.25 mg PO BID PRN anxiety 30 days 08/29/23 09/14/23 09/12/23 Rx #60 tabs Allergies Allergy/AdvReac Type Severity Reaction Status Date / Time codeine Allergy Severe Closes Verified 08/08/23 09:30 throat PFSH Acute PFSH: Medical History Migraine without aura No pertinent past medical history neghx: htn,dm,thyroid,dvt/pe PCP: Luz Castle Lhermitte's sign positive Seizure disorder Malabsorption syndrome Paranoid schizophrenia Nicotine dependence, unspecified, uncomplicated Cannabis use disorder, moderate, dependence has marijuana card for epilepsy Generalized anxiety disorder Major depressive disorder, recurrent severe without psychotic features Post-traumatic stress disorder, chronic Borderline personality disorder Surgical History H/O hemorrhoidectomy (~2019) Hx of section 1)--2014 2)--2016 Hx laparoscopic cholecystectomy 2017 Hx of tubal ligation (~2016) at the same time of her C/S H/O gastric bypass (~09/2017) [place]-Y; Abelardo Arteaga Family History Mother Hypertension Diabetes Hypercholesteremia Stroke Father Diabetes Heart disease Hypercholesteremia Hypertension Stroke Family/Other Breast cancer Maternal Aunt--dx age 50 Grandfather Diabetes Maternal and Paternal Grandmother Diabetes Maternal and Paternal Cancer MGM- Leukemia Denies family history of Colon cancer Ovarian cancer Uterine cancer Thyroid disease Social History Smoking and tobacco/nicotine status: current every day tobacco/nicotine user e-cigarettes E-Cigarette Details: vaporizer device and with nicotine Second hand smoke exposure: No Alcohol intake: never Substance/Drug Use: current Substance/Drug use frequency: daily Other substance/drug use details: medical marijuana card Vitals/I&O/Wt Last Vital Signs Temp 97.7 F 09/14/23 09:27 Pulse 89 09/14/23 09:27 Resp 20 H 09/14/23 09:27 BP 104/69 09/14/23 09:27 Pulse Ox 98 09/14/23 09:27 O2 Del Method Room Air 09/14/23 09:27 Weight last 48 hrs Weight 107 lb A&P Assessment and plan (1) Difficulty in swallowing: Qualifiers: Dysphagia type: unspecified Qualified Code(s): R13.10 - Dysphagia, unspecified (2) Chronic idiopathic constipation: (3) GI bleed: (4) GERD (gastroesophageal reflux disease): Plan EGD with possible balloon dilation Diagnostic colonoscopy Attestations Medical Necessity Statement*: home Coding Level of Care Code Acute Code for Chg Fwd Diagnoses Dysphagia, unspecified type R13.10 Dysphagia type: unspecified Chronic idiopathic constipation K59.04 GI bleed K92.2 GERD (gastroesophageal reflux disease) K21.9
[2023-09-14 10:41] VITALS: BP 109/62; PULSE 75; RESP 16; TEMP 36.3; O2SAT 100
[2023-09-14 10:50] VITALS: BP 86/50; PULSE 64; RESP 16; O2SAT 100
[2023-09-14 11:00] VITALS: BP 114/73; PULSE 75; RESP 18; O2SAT 100
[2023-09-14 11:10] VITALS: BP 105/68; PULSE 69; RESP 18; O2SAT 100
--- NOTE | 2023-09-14 11:25 | ANE.PACU2 ---
Inpatient post-anesthesia follow up: Airway intact: Yes Vital signs: Temperature 97.3 F Pulse Rate 69 Respiratory Rate 18 Blood Pressure 105/68 Pulse Oximetry 100 Oxygen Delivery Me thod Room Air Oxygen Flow Rate 4 Fraction of Inspir ed Oxygen Hydration adequate: Yes Nausea and vomiting: No Pain level: 1 Mental status: Baseline
== END 2023-09-14 11:22 | disposition home or self-care (01) ==
PROVIDERS: Anesthesiology; PCP Nurse Practitioner Family; Visit Provider Surgery
PROC: 0DJD8ZZ Inspection of Lower Intestinal Tract, Via Natural or Artificial Opening Endoscopic (ICD-10-PCS; CPT 45378; 2023-09-14 10:00)
DX: K59.04 Chronic idiopathic constipation (principal); R13.10 Dysphagia, unspecified; K92.2 Gastrointestinal hemorrhage, unspecified; D50.9 Iron deficiency anemia, unspecified; K21.9 Gastro-esophageal reflux disease without esophagitis; K64.8 Other hemorrhoids; G47.30 Sleep apnea, unspecified; E11.9 Type 2 diabetes mellitus without complications; M79.7 Fibromyalgia; F17.290 Nicotine dependence, other tobacco product, uncomplicated
CPT/HCPCS: 43239; 45378; 81025; 88305; G0121; J2250; J2371; J2704; J7030

== ENCOUNTER 2024-08-11 16:51 | Emergency (ER) | payer OTHER, MEDICAID, SELFPAY ==
[2024-08-11 17:00] VITALS: BP 110/73; PULSE 87; RESP 16; TEMP 36.7; O2SAT 99; BMI 22.2
--- NOTE | 2024-08-11 17:06 | ED_ITS ---
HPI - Animal Bite General: Chief Complaint: Animal Bite Stated Complaint: slobbered on by racoon Time Seen by Provider: 08/11/24 16:57 Source: patient Mode of arrival: ambulatory Limitations: no limitations History of Present Illness: 29-year-old female states she was expose d to a raccoon they are concerned had rabies states that the raccoon was acting weird was drooling states she had open sores and got his drool on the open sores this happened 4 days ago no erythema no pain was concerned about getting rabies shot Associated symptoms: Deny fever(s) or headache(s) Related Data Home Medications ?Medication ?Instructions ?Recorded ?Confirmed cyanocobalamin (vitamin B-12) 2,500 mcg PO DIRECTED 08/08/23 03/23/24 2,500 mcg tablet ergocalciferol (vitamin D2) 50 mcg 50 mcg PO DIRECT ED 08/08/23 03/23/24 (2,000 unit) tablet Previous Rx's ?Medication ?Instructions ?Recorded albuterol sulfate 90 mcg/actuation 2 puff inhalation Q 6H PRN 06/25/21 aerosol inhaler (ProAir HFA) shortness of breath or wh eezing #8.5 grams albuterol sulfate 2.5 mg/3 mL 2.5 mg (3 mL) inhalation QID PRN 03/10/22 (0.083 %) solution for nebulization shortness of breat h or wheezing #180 mL polyethylene glycol 3350 17 17 g PO BID 30 days #1,020 grams 04/06/23 gram/dose oral powder (Miralax) ferrous sulfate 325 mg (65 mg 325 mg PO TID 90 days #2 70 tabs 05/19/23 iron) tablet,delayed release olanzapine 2.5 mg tablet (Zyprexa) 2.5 mg PO BID 30 da ys #60 tabs 07/26/23 prazosin 1 mg capsule 1 mg PO .qhs 30 days #30 cap s 07/26/23 alprazolam 0.25 mg tablet 0.25 mg PO BID PRN anxiety 3 0 days 08/29/23 #60 tabs pantoprazole 40 mg tablet,delayed 40 mg PO BID 6 weeks #84 tabs 02/21/24 release (Protonix) Allergies Allergy/AdvReac Type Severity Reaction Status Date / Time codeine Allergy Severe Closes Verified 03/23/24 15:19 throat clonazepam Allergy Unknown Verified 08/11/24 17:03 Review of Systems Const: Denies: fever(s) Card: Denies: chest pain Skin/Breast: Denies: rash or erythema Neuro: Denies: headache(s) PFSH ED PFSH: Medical History Migraine without aura No pertinent past medical history neghx: htn,dm,thyroid,dvt/pe PCP: Luz Carlin's sign positive Seizure disorder Malabsorption syndrome Paranoid schizophrenia Nicotine dependence, unspecified, uncomplicated Cannabis use disorder, moderate, dependence has marijuana card for epilepsy Generalized anxiety disorder Major depressive disorder, recurrent severe without psychotic features Post-traumatic stress disorder, chronic Borderline personality disorder Surgical History H/O hemorrhoidectomy (~2019) Hx of section 1)--2014 2)--2015 Hx laparoscopic cholecystectomy 2017 Hx of tubal ligation (~2016) at the same time of her C/S H/O gastric bypass (~09/2017) [place]our[place]-Y; Abelardo Arteaga Family History Mother Hypertension Diabetes Hypercholesteremia Stroke Father Diabetes Heart disease Hypercholesteremia Hypertension Stroke Family/Other Breast cancer Maternal Aunt--dx age 50 Grandfather Diabetes Maternal and Paternal Grandmother Diabetes Maternal and Paternal Cancer MGM- Leukemia Denies family history of Colon cancer Ovarian cancer Uterine cancer Thyroid disease Social History Smoking and tobacco/nicotine status: current every day tobacco/nicotine user e- cigarettes E-Cigarette Details: vaporizer device and with nicotine Second hand smoke exposure: No Alcohol intake: never Substance/Drug Use: current Substance/Drug use frequency: daily Other substance/drug use details: medical marijuana card Physical Exam Const: COMMON NORMALS: no acute distress and patient oriented x3 HENMT: COMMON NORMALS: normocephalic and atraumatic HEAD & SCALP: normocephalic and atraumatic Eye: COMMON NORMALS: conjunctivae normal CONJUNCTIVA: Yes conjunctivae normal Chest: COMMONS NORMALS: normal inspection of the chest Resp: COMMON NORMALS: normal respiratory effort Extremity: COMMON NORMALS: normal to inspection Neuro: COMMON NORMALS: patient oriented x3 Psych: COMMON NORMALS: mental status grossly normal Skin: COMMON NORMALS: no rashes or lesions noted GENERAL SKIN EXAM: no rashes or lesions noted Course Vital Signs: Vital signs: Vital Signs Temperature 98.0 F 08/11/24 17:00 Pulse Rate 87 08/11/24 17:00 Respiratory Rate 16 08/11/24 17:00 Blood Pressure 110/73 08/11/24 17:00 Pulse Oximetry 99 08/11/24 17:00 Oxygen Delivery Me thod Room Air 08/11/24 17:00 MDM - Animal Bite Medical Decision Making Patient presents here with possible rabies exposure we will start her on rabies vaccine immunoglobulin she is to return for the series. No radiology studies performed this visit Discharge Plan Discharge Patient Disposition: Home Clinical Impression: Rabies contact Condition: Stable Prescriptions: No Action albuterol sulfate [ProAir HFA] 90 mcg/actuation HFA aerosol inhaler 2 puff inhalation Q6H PRN (Reason: shortness of breath or wheezing) Qty: 8.5 6RF polyethylene glycol 3350 [Miralax] 17 gram/dose powder 17 g PO BID 30 Days Qty: 1020 0RF prazosin 1 mg capsule 1 mg PO .qhs 30 Days Qty: 30 5RF olanzapine [Zyprexa] 2.5 mg tablet 2.5 mg PO BID 30 Days Qty: 60 5RF alprazolam 0.25 mg tablet 0.25 mg PO BID PRN (Reason: anxiety) 30 Days Qty: 60 0RF ferrous sulfate 325 mg (65 mg iron) tablet,delayed release (DR/EC) 325 mg PO TID 90 Days Qty: 270 1RF albuterol sulfate 2.5 mg /3 mL (0.083 %) solution for nebulization 2.5 mg inhalation QID PRN (Reason: shortness of breath or wheezing) Qty: 180 6RF pantoprazole [Protonix] 40 mg tablet,delayed release (DR/EC) 40 mg PO BID 42 Days Qty: 84 1RF ergocalciferol (vitamin D2) 50 mcg (2,000 unit) tablet 50 mcg PO DIRECTED Rx Instructions: WEEKLY cyanocobalamin (vitamin B-12) 2,500 mcg tablet 2,500 mcg PO DIRECTED Patient Comments: WEEKLY Discharge Orders: Discharge ED (Routine); Ordered 08/11/24 Ordered By: Aren Novak Discharge Diet: Advance as tolerated Discharge Activity: Resume usual activity Patient Instructions: Rabies (ED) Print Language: Mongolian Coding Level of Care Code ED Photoengraving Etcher for Yessy Conley
[2024-08-11] MEDS: rabies vaccine 2.5 unit SDV IM (17:28)
[2024-08-11] MEDS: rabies IG 300 unit/mL SDV 1 mL 990 UNIT IM (17:29)
[2024-08-11 18:05] VITALS: BP 110/69; PULSE 70; RESP 16; O2SAT 100
== END 2024-08-11 18:06 | disposition home or self-care (01) ==
PROVIDERS: Emergency Provider Emergency Medicine
DX: Z20.3 Contact with and (suspected) exposure to rabies (principal); Z29.14 Encounter for prophylactic rabies immune globulin; F17.290 Nicotine dependence, other tobacco product, uncomplicated
CPT/HCPCS: 90375; 90471; 90675; 99283